=== PATIENT | female | born 1935 | race Caucasian/White ===

== ENCOUNTER → 2017-10-15 | Outpatient (CLI) | payer MEDICARE ==
[2017-10-15 08:59] LABS: HCT 37.8 % (34.0-46.0); HGB 12.3 gm/dL (11.4-16.0); MCH 31.5 pg (25.0-35.0); MCHC 32.5 g/dL (31.0-37.0); Mean Platelet Volume 7.1; Platelet Count 172 k/uL (150-450); RDW 13.8 % (11.5-15.5); WBC 4.9 k/uL (3.8-10.6)
[2017-10-15 09:17] LABS: Albumin 4.5 g/dL (3.5-5.0); Calcium 9.7 mg/dL (8.4-10.2); Potassium 4.8 mmol/L (3.5-5.1); Total Bilirubin 0.8 mg/dL (0.2-1.3); Total Protein 7.1 g/dL (6.3-8.2)
== END | disposition home or self-care (01) ==
LOC: LABWHC1 07:42
PROVIDERS: ATTEND Internal Medicine Endocrinology, Diabetes & Metabolism
DX: E10.65 Type 1 diabetes mellitus with hyperglycemia (principal); E78.5 Hyperlipidemia, unspecified; E03.9 Hypothyroidism, unspecified; I25.118 Atherosclerotic heart disease of native coronary artery with other forms of angina pectoris
CPT/HCPCS: 36415; 80053; 80061; 82043; 82570; 83036; 84443; 85027

== ENCOUNTER 2018-01-23 11:49 | Emergency (ER) | payer MEDICARE ==
[2018-01-23 12:02] VITALS: RESP 16; TEMP 99.2
--- NOTE | 2018-01-23 12:26 | ED ---
General Adult HPI - General Chief complaint: Neuro Symptoms/Deficit Stated complaint: weakness, foot dragging Time Seen by Provider: 01/23/18 11:54 Source: patient, family, RN notes reviewed, old records reviewed Mode of arrival: ambulatory Limitations: physical limitation - History of Present Illness Initial comments: 82-year-old female presents for evaluation of left foot weakness and gait instability. Patient is accompanied by her daughter who states over the past 2 weeks she is, more unsteady on her feet, patient is unable to dorsiflex at the ankle on the left. Denies any paresthesias, denies numbness or tingling. Denies any other focal weakness. Her daughter does state that over the past 2 days she's had some intermittent slurred speech. This is resolved at the time my evaluation. Patient has remote history of TIA with no residual deficits. Denies any injury. Denies chest pain. Denies abdominal pain nausea or vomiting. Denies fever or chills. Denies dysuria. - Related Data Home Medications Medication Instructions Recorded Confirmed Cholecalciferol [Vitamin D3] 2,000 units PO QAM 04/10/14 01/23/18 Atorvastatin [Lipitor] 40 mg PO HS 02/11/16 01/23/18 Calcium Carbonate [Calcium] 1,200 mg PO QAM 02/11/16 01/23/18 Fluticasone Nasal [place] [Flonase 1 spray EA NOSTRIL DAILY PRN 02/11/16 01/23/18 Nasal [place]] Losartan/Hydrochlorothiazide 1 tab PO QAM 02/11/16 01/23/18 [Hyzaar 100-12.5 Tablet] Magnesium Gluconate [Magonate] 500 mg PO HS 02/11/16 01/23/18 [place]-3 Fatty Acids/Fish Oil [Fish 1 cap PO HS 02/11/16 01/23/18 Oil 1,000 mg Softgel] amLODIPine [Norvasc] 5 mg PO DAILY 02/11/16 01/23/18 INSULIN LISPRO (humaLOG) [humaLOG] 3 - 8 unit SQ AC-TID 01/23/18 01/23/18 Insulin Glargine [Lantus] 22 unit SQ QAM 01/23/18 01/23/18 Previous Rx's Medication Instructions Recorded Pen Needle, Diabetic [Bd 1 each ACHS #120 dis.needle 02/15/16 Ultra-Fine Pen Needle 4mm 32G] Allergies Allergy/AdvReac Type Severity Reaction Status Date / Time Penicillins Allergy Rash/Hives Verified 01/23/18 11:56 UNSPECIFIED METAL Allergy PAIN Uncoded 01/23/18 11:56 Review of Systems ROS Statement: Those systems with pertinent positive or pertinent negative responses have been documented in the HPI. ROS Other: All systems not noted in ROS Statement are negative. Past Medical History Past Medical History: Cancer, CVA/TIA, Dementia, Diabetes Mellitus, Hearing Disorder / Deafness, Hyperlipidemia, Hypertension, Pneumonia, Skin Disorder Additional Past Medical History / Comment(s): HAS A INSULIN PUMP,YELLOW JAUNDICE A CHILD". TIA, NO RESIDUAL. History of Any Multi-Drug Resistant Organisms: None Reported Past Surgical History: Heart Catheterization With Stent, Orthopedic Surgery Additional Past Surgical History / Comment(s): SURGERY ON LEG-PLATE AND SCREW, PLATE AND SCREW REMOVED ,CARPAL TUNNEL BILATERAL, carpal tunnel hands bilateral Past Anesthesia/Blood Transfusion Reactions: No Reported Reaction Date of Last Stent Placement:: 04/2014 Past Psychological History: No Psychological Hx Reported Smoking Status: Never smoker Past Alcohol Use History: Occasional Past Drug Use History: None Reported - Past Family History Sister(s) Family Medical History: Cancer, Diabetes Mellitus Additional Family Medical History / Comment(s): multiple siblings have had cancer and diabetes mellitus General Exam Limitations: physical limitation General appearance: alert, in no apparent distress Head exam: Present: atraumatic, normocephalic Eye exam: Present: normal appearance, PERRL, EOMI Neck exam: Present: normal inspection, tenderness Respiratory exam: Present: normal lung sounds bilaterally. Absent: respiratory distress, wheezes Cardiovascular Exam: Present: regular rate, normal rhythm GI/Abdominal exam: Present: soft. Absent: distended, tenderness, guarding Extremities exam: Present: normal inspection, normal capillary refill, other. Absent: pedal edema, calf tenderness Neurological exam: Present: alert, oriented X3, CN II-XII intact, motor sensory deficit (NIH is 0. Patient has foot drop on the left, weakness with dorsiflexion, plantar flexion is normal.), other Psychiatric exam: Present: normal affect, normal mood Skin exam: Present: warm, dry, intact. Absent: cyanosis, diaphoretic Course Vital Signs 01/23/18 11:56 Temperature 99.2 F Pulse Rate 86 Respiratory 16 Rate Blood Pressure 178/81 O2 Sat by Pulse 99 Oximetry EKG Findings - EKG Comments: EKG Findings:: EKG: Sinus rhythm with first-degree AV block, right bundle branch block, rate of 70, W[place] interval 214, QRS duration 134, QTC 466, similar compared to EKG obtained in February 2016. No ST segment elevation Medical Decision Making - Medical Decision Making 82-year-old female presenting with unsteady gait, left foot drop, and some intermittent slurred speech. Workup in the emergency Department is significant for head CT which does show some volume loss which is suggestive of normal pressure hydrocephalus, there is also old lacunar infarct. Chest x-ray shows cardiomegaly with no acute cardiopulmonary process, normal CBC, CMP is significant for hyperglycemia and sodium 131, urinalysis is clear. Patient's gait is likely related to foot drop but head CT findings may be contributing. Case is discussed with patient's primary care physician Dr. Soto. This workup can be continued as an outpatient. All information is conveyed to the patient and her daughter who is at bedside. They will follow up with primary care this week for reevaluation. - Lab Data Result diagrams: 01/23/18 12:28 01/23/18 12:28 Lab Results 01/23/18 01/23/18 01/23/18 Range/Units 12:28 12:28 12:28 WBC 6.0 (3.8-10.6) k/uL RBC 4.08 (3.80-5.40) m/uL Hgb 12.6 (11.4-16.0) gm/dL Hct 37.9 (34.0-46.0) % MCV 92.9 (80.0-100.0) fL MCH 30.9 (25.0-35.0) pg MCHC 33.3 (31.0-37.0) g/dL RDW 12.6 (11.5-15.5) % Plt Count 208 (150-450) k/uL Neutrophils % 74 % Lymphocytes % 17 % Monocytes % 6 % Eosinophils % 1 % Basophils % 0 % Neutrophils # 4.5 (1.3-7.7) k/uL Lymphocytes # 1.0 (1.0-4.8) k/uL Monocytes # 0.4 (0-1.0) k/uL Eosinophils # 0.1 (0-0.7) k/uL Basophils # 0.0 (0-0.2) k/uL PT (9.0-12.0) sec INR (<1.2) APTT (22.0-30.0) sec Sodium 131 L (137-145) mmol/L Potassium 4.4 (3.5-5.1) mmol/L Chloride 97 L (98-107) mmol/L Carbon Dioxide 23 (22-30) mmol/L Anion Gap 11 mmol/L BUN 17 (7-17) mg/dL Creatinine 0.59 (0.52-1.04) mg/dL Est GFR (CKD-EPI)AfAm >90 (>60 ml/min/1.73 sqM) Est GFR (CKD-EPI)NonAf 85 (>60 ml/min/1.73 sqM) Glucose 271 H (74-99) mg/dL Calcium 9.7 (8.4-10.2) mg/dL Total Bilirubin 0.7 (0.2-1.3) mg/dL AST 27 (14-36) U/L ALT 26 (9-52) U/L Alkaline Phosphatase 72 (38-126) U/L Total Creatine Kinase 112 (30-135) U/L CK-MB (CK-2) 1.7 (0.0-2.4) ng/mL CK-MB (CK-2) Rel Index 1.5 Troponin I <0.012 (0.000-0.034) ng/mL Total Protein 6.6 (6.3-8.2) g/dL Albumin 4.0 (3.5-5.0) g/dL Urine Color Urine Appearance (Clear) Urine pH (5.0-8.0) Ur Specific [place] (1.001-1.035) Urine Protein (Negative) Urine Glucose (UA) (Negative) Urine Ketones (Negative) Urine Blood (Negative) Urine Nitrite (Negative) Urine Bilirubin (Negative) Urine Urobilinogen (<2.0) mg/dL Ur Leukocyte Esterase (Negative) Urine WBC (0-5) /hpf Ur Squamous Epith Cells (0-4) /hpf 01/23/18 01/23/18 Range/Units 12:28 13:40 WBC (3.8-10.6) k/uL RBC (3.80-5.40) m/uL Hgb (11.4-16.0) gm/dL Hct (34.0-46.0) % MCV (80.0-100.0) fL MCH (25.0-35.0) pg MCHC (31.0-37.0) g/dL RDW (11.5-15.5) % Plt Count (150-450) k/uL Neutrophils % % Lymphocytes % % Monocytes % % Eosinophils % % Basophils % % Neutrophils # (1.3-7.7) k/uL Lymphocytes # (1.0-4.8) k/uL Monocytes # (0-1.0) k/uL Eosinophils # (0-0.7) k/uL Basophils # (0-0.2) k/uL PT 10.9 (9.0-12.0) sec INR 1.1 (<1.2) APTT 23.1 (22.0-30.0) sec Sodium (137-145) mmol/L Potassium (3.5-5.1) mmol/L Chloride (98-107) mmol/L Carbon Dioxide (22-30) mmol/L Anion Gap mmol/L BUN (7-17) mg/dL Creatinine (0.52-1.04) mg/dL Est GFR (CKD-EPI)AfAm (>60 ml/min/1.73 sqM) Est GFR (CKD-EPI)NonAf (>60 ml/min/1.73 sqM) Glucose (74-99) mg/dL Calcium (8.4-10.2) mg/dL Total Bilirubin (0.2-1.3) mg/dL AST (14-36) U/L ALT (9-52) U/L Alkaline Phosphatase (38-126) U/L Total Creatine Kinase (30-135) U/L CK-MB (CK-2) (0.0-2.4) ng/mL CK-MB (CK-2) Rel Index Troponin I (0.000-0.034) ng/mL Total Protein (6.3-8.2) g/dL Albumin (3.5-5.0) g/dL Urine Color Yellow Urine Appearance Clear (Clear) Urine pH 7.0 (5.0-8.0) Ur Specific [place] 1.005 (1.001-1.035) Urine Protein Negative (Negative) Urine Glucose (UA) 4+ H (Negative) Urine Ketones Trace H (Negative) Urine Blood Negative (Negative) Urine Nitrite Negative (Negative) Urine Bilirubin Negative (Negative) Urine Urobilinogen <2.0 (<2.0) mg/dL Ur Leukocyte Esterase Trace H (Negative) Urine WBC 1 (0-5) /hpf Ur Squamous Epith Cells <1 (0-4) /hpf Disposition Clinical Impression: Foot drop, left, NPH (normal pressure hydrocephalus) Disposition: HOME SELF-CARE Condition: Good Instructions: Foot Drop (ED) Is patient prescribed a controlled substance at d/c from ED?: No Referrals: Quan Soto MD [Primary Care Provider] - 1-2 days Time of Disposition: 14:22
[2018-01-23 12:48] LABS: Basophils % (A) 0 %; Eosinophils # (A) 0.1 k/uL (0-0.7); Eosinophils % (A) 1 %; HCT 37.9 % (34.0-46.0); HGB 12.6 gm/dL (11.4-16.0); Lymphocytes % (A) 17 %; MCH 30.9 pg (25.0-35.0); MCHC 33.3 g/dL (31.0-37.0); MCV 92.9 fL (80.0-100.0); Mean Platelet Volume 7.5; Monocytes # (A) 0.4 k/uL (0-1.0); Monocytes % (A) 6 %; Neutrophils # (A) 4.5 k/uL (1.3-7.7); Neutrophils % (A) 74 %; Platelet Count 208 k/uL (150-450); RBC 4.08 m/uL (3.80-5.40); RDW 12.6 % (11.5-15.5)
[2018-01-23 12:57] LABS: ALT 26 U/L (9-52); AST 27 U/L (14-36); Alkaline Phosphatase 72 U/L (38-126); Anion Gap 11 mmol/L; Blood Urea Nitrogen 17 mg/dL (7-17); Calcium 9.7 mg/dL (8.4-10.2); Carbon Dioxide 23 mmol/L (22-30); Chloride 97 mmol/L (98-107); Glucose 271 mg/dL (74-99); INR 1.1 (<1.2); Partial Thromboplastin Time 23.1 sec (22.0-30.0); Potassium 4.4 mmol/L (3.5-5.1); Prothrombin Time 10.9 sec (9.0-12.0); Sodium 131 mmol/L (137-145); Total Bilirubin 0.7 mg/dL (0.2-1.3); Total Protein 6.6 g/dL (6.3-8.2)
--- NOTE | 2018-01-23 13:06 | CT ---
EXAMINATION TYPE: CT brain wo con DATE OF EXAM: 01/23/2018 COMPARISON: Previous study dated 02/11/2016 HISTORY: Weakness, slurred speech, confusion, dementia CT DLP: 1049 mGycm Automated exposure control for dose reduction was used. FINDINGS: There are generalized changes of sulcal prominence and ventriculomegaly, compatible with atrophic antonella nge. There is diffuse periventricular white matter lucency, compatible with chronic white matter isch emic change. The size of the ventricles are somewhat out of keeping with the degree of sulcal promine nce. It would be difficult to exclude some degree of normal pressure hydrocephalus. There is evidence of an old lacunar infarct in the external capsule on the right. There is no mass effect, midline aarti ft or intracranial blood. Visualized portions of the paranasal sinuses and mastoids are clear. No depressed skull fracture is s een. IMPRESSION: 1. NO ACUTE INTRACRANIAL ABNORMALITY. 2. PLEASE CORRELATE CLINICALLY FOR NORMAL PRESSURE HYDROCEPHALUS. 3. DEGENERATIVE CHANGE.
--- NOTE | 2018-01-23 13:06 | XR ---
EXAMINATION TYPE: XR chest 2V DATE OF EXAM: 01/23/2018 HISTORY: altered mental status. REFERENCE: Previous study dated 02/11/2016. FINDINGS: The heart is enlarged. The lungs are clear. Pleural spaces are clear. IMPRESSION: CARDIOMEGALY.
[2018-01-23 13:07] LABS: Creatine Kinase 112 U/L (30-135)
[2018-01-23 13:21] LABS: Creatine Kinase MB 1.7 ng/mL (0.0-2.4); Troponin I <0.012 ng/mL (0.000-0.034)
[2018-01-23 13:55] LABS: Appearance,Urine Clear (Clear); Bilirubin,Urine Negative (Negative); Blood,Urine Negative (Negative); Color,Urine Yellow; Glucose,Urine (UA) 4+ (Negative); Ketones,Urine Trace (Negative); Leukocyte Esterase,Urine Trace (Negative); Nitrite,Urine Negative (Negative); Protein,Urine Negative (Negative); Specific Gravity,Urine 1.005 (1.001-1.035); Squamous Epithelial Cell,Urine <1 /hpf (0-4); Urobilinogen,Urine <2.0 mg/dL (<2.0); WBC,Urine 1 /hpf (0-5)
[2018-01-23 14:30] VITALS: BP 160/77; PULSE 72
== END 2018-01-23 14:30 | disposition home or self-care (01) ==
LOC: EC 11:49
DX: M21.372 Foot drop, left foot (principal); G91.2 (Idiopathic) normal pressure hydrocephalus; R47.81 Slurred speech; I51.7 Cardiomegaly; E11.9 Type 2 diabetes mellitus without complications; E78.5 Hyperlipidemia, unspecified; I10 Essential (primary) hypertension; Z79.4 Long term (current) use of insulin; Z79.899 Other long term (current) drug therapy; Z79.51 Long term (current) use of inhaled steroids; Z88.0 Allergy status to penicillin; Z91.09 Other allergy status, other than to drugs and biological substances; Z86.73 Personal history of transient ischemic attack (TIA), and cerebral infarction without residual deficits; Z95.5 Presence of coronary angioplasty implant and graft
CPT/HCPCS: 36415; 70450; 71046; 80053; 81001; 82550; 82553; 84484; 85025; 85610; 85730; 93005; 99284

== ENCOUNTER 2019-09-22 18:52 | Inpatient (IN) | payer MEDICARE ==
[2019-09-22] MEDS ORDERED: SODIUM CHLORIDE 0.9% 500 ML 500 ML IV STA (19:14)
--- NOTE | 2019-09-22 19:25 | ED ---
General Adult HPI - General Chief complaint: Weakness Stated complaint: weakness/vomiting Time Seen by Provider: 09/22/19 19:00 Source: patient, family, RN notes reviewed Mode of arrival: wheelchair Limitations: altered mental status, physical limitation - History of Present Illness Initial comments: 84-year-old female with a complicated past medical history including diabetes mellitus, dementia, TIA, hyperlipidemia, hypertension, pneumonia presents to the emergency department for a chief complaint of weakness. Patient has been staying at [facility]. Daughter states that she was called by staff today and told that she probably should go to the hospital because she is very weak. Unclear exactly when this started. Patient did apparently fall on Wednesday and hit her head. Patient has history of dementia and is at baseline regarding this. patient was also apparently vomiting clear vomit earlier today. Patient has no other complaints at this time including shortness of breath, chest pain, abdominal pain, nausea or vomiting, headache, or visual changes. - Related Data Home Medications Medication Instructions Recorded Confirmed Cholecalciferol [Vitamin D3 (25 1,000 units PO DAILY@0800 04/10/14 09/22/19 Mcg = 1000 Iu)] Atorvastatin [Lipitor] 40 mg PO HS@1700 02/11/16 09/22/19 Fluticasone Nasal [place] [Flonase 2 spray EA NOSTRIL DAILY@0800 02/11/16 09/22/19 Nasal [place]] Losartan/Hydrochlorothiazide 1 tab PO DAILY@1200 02/11/16 09/22/19 [Hyzaar 100-12.5 Tablet] [place]-3 Fatty Acids/Fish Oil [Fish 1 cap PO HS@1700 02/11/16 09/22/19 Oil 1,000 mg Softgel] amLODIPine [Norvasc] 2.5 mg PO DAILY@1200 02/11/16 09/22/19 ALPRAZolam [Xanax] 0.25 mg PO BID@0800,1400 09/22/19 09/22/19 Acetaminophen Tab [Tylenol Tab] 1,000 mg PO Q8H PRN 09/22/19 09/22/19 Acetic Acid [Acetic Acid Otic 5 - 10 drops BOTH EARS 09/22/19 09/22/19 Solution] TID@0800,1400,2000 Aspirin EC [Ecotrin Low Dose] 81 mg PO DAILY@0800 09/22/19 09/22/19 Calcium Carbonate [Calcium] 1,200 mg PO DAILY 09/22/19 09/22/19 Calcium Carbonate [Tums] 1,000 mg PO DAILY@0800 09/22/19 09/22/19 DULoxetine HCL [Cymbalta] 30 mg PO DAILY@0800 09/22/19 09/22/19 Famotidine 10 mg PO DAILY@0800 09/22/19 09/22/19 Fluticasone Nasal [place] [Flonase 2 spr EA NOSTRIL HS PRN 09/22/19 09/22/19 Nasal [place]] Guaifenesin/Dextromethorphan 10 ml PO Q4H PRN 09/22/19 09/22/19 [Diabetic Tussin Dm Max-Str Liq] Insulin Aspart [NovoLOG Flexpen] See Protocol SQ TID@0800,1200,1700 09/22/19 09/22/19 Insulin Glargine,Hum.rec.anlog 22 unit SQ DAILY@0800 09/22/19 09/22/19 [Lantus Solostar] Magnesium Oxide [[place]le[place]] 1,000 mg PO HS@1700 09/22/19 09/22/19 Naproxen Sodium [Aleve] 440 mg PO BID@0800,2000 09/22/19 09/22/19 Phenylephrine HCl [Sudafed PE] 20 mg PO Q4H PRN 09/22/19 09/22/19 Allergies Allergy/AdvReac Type Severity Reaction Status Date / Time Penicillins Allergy Rash/Hives Verified 09/22/19 19:52 UNSPECIFIED METAL AdvReac PAIN Uncoded 09/22/19 19:52 Review of Systems ROS Statement: Those systems with pertinent positive or pertinent negative responses have been documented in the HPI. ROS Other: All systems not noted in ROS Statement are negative. Past Medical History Past Medical History: Cancer, CVA/TIA, Dementia, Diabetes Mellitus, Hearing Disorder / Deafness, Hyperlipidemia, Hypertension, Pneumonia, Skin Disorder Additional Past Medical History / Comment(s): HAS A INSULIN PUMP,YELLOW JAUNDICE A CHILD". TIA, NO RESIDUAL. History of Any Multi-Drug Resistant Organisms: None Reported Past Surgical History: Heart Catheterization With Stent, Orthopedic Surgery Additional Past Surgical History / Comment(s): SURGERY ON LEG-PLATE AND SCREW,PLATE AND SCREW REMOVED ,CARPAL TUNNEL BILATERAL, carpal tunnel hands bilateral Past Anesthesia/Blood Transfusion Reactions: No Reported Reaction Date of Last Stent Placement:: 04/2014 Past Psychological History: No Psychological Hx Reported Smoking Status: Never smoker Past Alcohol Use History: Occasional Past Drug Use History: None Reported - Past Family History Sister(s) Family Medical History: Cancer, Diabetes Mellitus Additional Family Medical History / Comment(s): multiple siblings have had cancer and diabetes mellitus General Exam Limitations: altered mental status, physical limitation General appearance: alert, in no apparent distress Head exam: Present: atraumatic, normocephalic, normal inspection Eye exam: Present: normal appearance, PERRL, EOMI. Absent: scleral icterus, conjunctival injection, periorbital swelling ENT exam: Present: normal exam, mucous membranes moist Neck exam: Present: normal inspection, full ROM. Absent: tenderness, meningismus, lymphadenopathy Respiratory exam: Present: normal lung sounds bilaterally. Absent: respiratory distress, wheezes, rales, rhonchi, stridor Cardiovascular Exam: Present: regular rate, normal rhythm, normal heart sounds. Absent: systolic murmur, diastolic murmur, rubs, gallop, clicks GI/Abdominal exam: Present: soft, tenderness (generalized abdominal tenderness), normal bowel sounds. Absent: distended, guarding, rebound, rigid Neurological exam: Present: alert Course Vital Signs 09/22/19 18:56 Temperature 97.7 F Pulse Rate 77 Respiratory 20 Rate Blood Pressure 157/75 O2 Sat by Pulse 98 Oximetry EKG Findings - EKG Comments: EKG Findings:: Sinus rhythm, ventricular rate 93, MT interval 212, QTc 502, compared to previous EKG from January 2018 and it is similar with right bundle branch block Medical Decision Making - Medical Decision Making Vitals are stable. Patient is an elderly female adult appear weak but is able to ambulate with a 2 person assist. CBC is unremarkable. CMP does show mild hyponatremia which was replaced with normal saline. Evidence of dehydration as well with a BUN to creatinine ratio of 45. Patient was given a gram of magnesium as she did have a hypomagnesemia of 1.5 with a slightly prolonged QTc of 502. Urinalysis did show evidence of infection. Urine culture pending. Patient treated with Rocephin. Patient will be admitted to the hospital. A bladder scan was ordered when necessary as we did straight cath patient and she had 600 mL in her bladder. Dr. Gomez did accept as admission. Made aware that she does have history of sundowner's. - Lab Data Result diagrams: 09/22/19 19:09/22/19 19: Lab Results 09/22/19 09/22/19 09/22/19 Range/Units 19: 19: 19:22 WBC 8.3 (3.8-10.6) k/uL RBC 4.45 (3.80-5.40) m/uL Hgb 13.3 (11.4-16.0) gm/dL Hct 41.2 (34.0-46.0) % MCV 92.6 (80.0-100.0) fL MCH 29.9 (25.0-35.0) pg MCHC 32.3 (31.0-37.0) g/dL RDW 12.6 (11.5-15.5) % Plt Count 234 (150-450) k/uL Neutrophils % 91 % Lymphocytes % 5 % Monocytes % 3 % Eosinophils % 0 % Basophils % 0 % Neutrophils # 7.5 (1.3-7.7) k/uL Lymphocytes # 0.4 L (1.0-4.8) k/uL Monocytes # 0.3 (0-1.0) k/uL Eosinophils # 0.0 (0-0.7) k/uL Basophils # 0.0 (0-0.2) k/uL PT 10.8 (9.0-12.0) sec INR 1.1 (<1.2) APTT 23.0 (22.0-30.0) sec Sodium 129 L (137-145) mmol/L Potassium 4.1 (3.5-5.1) mmol/L Chloride 94 L (98-107) mmol/L Carbon Dioxide 22 (22-30) mmol/L Anion Gap 13 mmol/L BUN 22 H (7-17) mg/dL Creatinine 0.48 L (0.52-1.04) mg/dL Est GFR (CKD-EPI)AfAm >90 (>60 ml/min/1.73 sqM) Est GFR (CKD-EPI)NonAf 90 (>60 ml/min/1.73 sqM) Glucose 245 H (74-99) mg/dL Plasma Lactic Acid Bhar[place] (0.7-2.0) mmol/L Calcium 9.7 (8.4-10.2) mg/dL Magnesium 1.5 L (1.6-2.3) mg/dL Total Bilirubin 1.1 (0.2-1.3) mg/dL AST 22 (14-36) U/L ALT 15 (4-34) U/L Alkaline Phosphatase 102 (38-126) U/L Troponin I (0.000-0.034) ng/mL Total Protein 7.5 (6.3-8.2) g/dL Albumin 4.3 (3.5-5.0) g/dL Urine Color Urine Appearance (Clear) Urine pH (5.0-8.0) Ur Specific [place] (1.001-1.035) Urine Protein (Negative) Urine Glucose (UA) (Negative) Urine Ketones (Negative) Urine Blood (Negative) Urine Nitrite (Negative) Urine Bilirubin (Negative) Urine Urobilinogen (<2.0) mg/dL Ur Leukocyte Esterase (Negative) Urine RBC (0-5) /hpf Urine WBC (0-5) /hpf Ur Squamous Epith Cells (0-4) /hpf Urine Bacteria (None) /hpf Urine Mucus (None) /hpf Urine Yeast (Budding) (None) /hpf 09/22/19 09/22/19 09/22/19 Range/Units 19:22 19:22 20:30 WBC (3.8-10.6) k/uL RBC (3.80-5.40) m/uL Hgb (11.4-16.0) gm/dL Hct (34.0-46.0) % MCV (80.0-100.0) fL MCH (25.0-35.0) pg MCHC (31.0-37.0) g/dL RDW (11.5-15.5) % Plt Count (150-450) k/uL Neutrophils % % Lymphocytes % % Monocytes % % Eosinophils % % Basophils % % Neutrophils # (1.3-7.7) k/uL Lymphocytes # (1.0-4.8) k/uL Monocytes # (0-1.0) k/uL Eosinophils # (0-0.7) k/uL Basophils # (0-0.2) k/uL PT (9.0-12.0) sec INR (<1.2) APTT (22.0-30.0) sec Sodium (137-145) mmol/L Potassium (3.5-5.1) mmol/L Chloride (98-107) mmol/L Carbon Dioxide (22-30) mmol/L Anion Gap mmol/L BUN (7-17) mg/dL Creatinine (0.52-1.04) mg/dL Est GFR (CKD-EPI)AfAm (>60 ml/min/1.73 sqM) Est GFR (CKD-EPI)NonAf (>60 ml/min/1.73 sqM) Glucose (74-99) mg/dL Plasma Lactic Acid Bharathi 2.0 (0.7-2.0) mmol/L Calcium (8.4-10.2) mg/dL Magnesium (1.6-2.3) mg/dL Total Bilirubin (0.2-1.3) mg/dL AST (14-36) U/L ALT (4-34) U/L Alkaline Phosphatase (38-126) U/L Troponin I <0.012 (0.000-0.034) ng/mL Total Protein (6.3-8.2) g/dL Albumin (3.5-5.0) g/dL Urine Color Light Yellow Urine Appearance Cloudy H (Clear) Urine pH 5.5 (5.0-8.0) Ur Specific [place] 1.016 (1.001-1.035) Urine Protein 1+ H (Negative) Urine Glucose (UA) 4+ H (Negative) Urine Ketones 3+ H (Negative) Urine Blood Negative (Negative) Urine Nitrite Negative (Negative) Urine Bilirubin Negative (Negative) Urine Urobilinogen <2.0 (<2.0) mg/dL Ur Leukocyte Esterase Large H (Negative) Urine RBC 1 (0-5) /hpf Urine WBC 62 H (0-5) /hpf Ur Squamous Epith Cells <1 (0-4) /hpf Urine Bacteria Rare H (None) /hpf Urine Mucus Rare H (None) /hpf Urine Yeast (Budding) Occasional H (None) /hpf Disposition Clinical Impression: Urinary tract infection, Hyponatremia, Hyperglycemia, Weakness Disposition: ADMITTED IP TO THIS HOSP Condition: Fair Is patient prescribed a controlled substance at d/c from ED?: No Referrals: Quan Soto MD [Primary Care Provider] - 1-2 days
[2019-09-22 19:38] LABS: Basophils % (A) 0 %; Eosinophils % (A) 0 %; HCT 41.2 % (34.0-46.0); HGB 13.3 gm/dL (11.4-16.0); Lymphocytes # (A) 0.4 k/uL (1.0-4.8); Lymphocytes % (A) 5 %; MCH 29.9 pg (25.0-35.0); MCHC 32.3 g/dL (31.0-37.0); MCV 92.6 fL (80.0-100.0); Mean Platelet Volume 7.7; Monocytes # (A) 0.3 k/uL (0-1.0); Monocytes % (A) 3 %; Neutrophils # (A) 7.5 k/uL (1.3-7.7); Neutrophils % (A) 91 %; Platelet Count 234 k/uL (150-450); RBC 4.45 m/uL (3.80-5.40); RDW 12.6 % (11.5-15.5); WBC 8.3 k/uL (3.8-10.6)
[2019-09-22 19:52] LABS: ALT 15 U/L (4-34); AST 22 U/L (14-36); African American GFR (CKD) >90 (>60 ml/min/1.73 sqM); Albumin 4.3 g/dL (3.5-5.0); Alkaline Phosphatase 102 U/L (38-126); Anion Gap 13 mmol/L; Blood Urea Nitrogen 22 mg/dL (7-17); Calcium 9.7 mg/dL (8.4-10.2); Carbon Dioxide 22 mmol/L (22-30); Chloride 94 mmol/L (98-107); Glucose 245 mg/dL (74-99); Magnesium 1.5 mg/dL (1.6-2.3); Non-African American GFR(CKD) 90 (>60 ml/min/1.73 sqM); Potassium 4.1 mmol/L (3.5-5.1); Sodium 129 mmol/L (137-145); Total Bilirubin 1.1 mg/dL (0.2-1.3); Total Protein 7.5 g/dL (6.3-8.2)
[2019-09-22 19:55] LABS: INR 1.1 (<1.2); Prothrombin Time 10.8 sec (9.0-12.0)
--- NOTE | 2019-09-22 19:55 | CT ---
EXAMINATION TYPE: CT brain cspine wo con DATE OF EXAM: 09/22/2019 COMPARISON: CT brain dated 01/23/2018 HISTORY: Fall 4 days ago with Left supra orbital injury CT DLP: 1320.9 mGycm. Automated Exposure Control for Dose Reduction was Utilized. TECHNIQUE: CT scan of the head and cervical spine are performed without contrast. FINDINGS: There is no acute intracranial hemorrhage or midline shift identified. There is diffuse v entricular and sulcal prominence consistent with diffuse age-related cerebral atrophy. There is exte nsive confluent low-attenuation in the periventricular white matter most commonly related to sequela of chronic microangiopathy. Lacunar injuries are seen of the right external capsule and right lentifo rm nucleus. Curvilinear hyperdense structure along the left parietal bone is indeterminate but unchan ged from the prior of 01/23/2018. Calcification of the tentorium is stable from the prior. Cervical spine is visualized in its entirety from C1 through upper thoracic levels and demonstrates s atisfactory alignment without evidence of acute fracture or dislocation. Prevertebral soft tissue ap pears within normal limits. Extensive multilevel degenerative disc disease is seen of the cervical s pine with multilevel anterior osteophytes, facet arthropathy, intervertebral disc space narrowing, po sterior disc osteophyte, uncovertebral hypertrophy, and cystic change of the osseous structures. Calc ifications of the spinous processes of C7 and T1 are likely sequela prior injury. There is diffuse os seous demineralization. Very minimal grade 1 anterolisthesis of C3 on C4 is seen, likely on a degener ative basis. No appreciable vertebral body height loss. Multifocal calcification of the ligamentum fl avum is seen. Evaluation of the spinal canal is limited on CT. The C1-C2 articulation is unremarkable . Biapical pleural parenchymal scarring is noted. Extensive spray artifact from dental fillings obsc ures surrounding structures and portions of the soft tissues of the neck. IMPRESSION: 1. There is no acute fracture or dislocation evident in the cervical spine. Extensive multilevel dege nerative disc disease with grade 1 anterolisthesis of C3 on C4, likely on a degenerative basis. 2. No acute intracranial hemorrhage, mass effect, or midline shift is seen. Extensive confluent nonsp ecific white matter change, likely on the basis of chronic microangiopathy with multiple old lacunar injuries. 3. Age-related volume loss.
--- NOTE | 2019-09-22 19:57 | XR ---
EXAMINATION TYPE: XR chest 1V portable DATE OF EXAM: 09/22/2019 COMPARISON: 01/23/2018 HISTORY: Weakness and vomiting. TECHNIQUE: Single frontal view of the chest is obtained. FINDINGS: There is pulmonary hyperinflation compatible with underlying COPD. Opacity overlying the d istal first rib is similar to the prior and therefore likely relates to costochondral calcification. Cardiomediastinal silhouette is again mildly enlarged and rotated to the right secondary to patient r otation. There is diffuse osseous demineralization. No new focal consolidation, pleural effusion or p neumothorax. IMPRESSION: Chronic changes with no acute cardiopulmonary process.
[2019-09-22] MEDS ORDERED: MAGNESIUM SULFATE-D5W PMX 1 GM in DEXTROSE/WATER 1 100ML.BAG IVPB ONE (20:07)
[2019-09-22 20:44] LABS: Appearance,Urine Cloudy (Clear); Bacteria,Urine Rare /hpf; Bilirubin,Urine Negative (Negative); Blood,Urine Negative (Negative); Budding Yeast,Urine Occasional /hpf; Color,Urine Light Yellow; Glucose,Urine (UA) 4+ (Negative); Leukocyte Esterase,Urine Large (Negative); Mucus,Urine Rare /hpf; Nitrite,Urine Negative (Negative); PH, Urine 5.5 (5.0-8.0); Protein,Urine 1+ (Negative); RBC,Urine 1 /hpf (0-5); Specific Gravity,Urine 1.016 (1.001-1.035); Squamous Epithelial Cell,Urine <1 /hpf (0-4); Urobilinogen,Urine <2.0 mg/dL (<2.0); WBC,Urine 62 /hpf (0-5)
[2019-09-22 21:01] LABS: Ketones,Urine 3+ (Negative)
[2019-09-22] MEDS ORDERED: cefTRIAXone IN SWFI 1,000 MG/10 ML SYRINGE IVP STA (21:35)
[2019-09-22] MEDS ORDERED: NALOXONE 0.4 MG/ML 1 ML VIAL IV PRN (21:36)
[2019-09-22 21:57] LABS: Glucose,Whole Blood 265 mg/dL (75-99)
[2019-09-22] MEDS: SODIUM CHLORIDE 0.9% 1,000 ML IV SCH (22:01)
--- NOTE | 2019-09-23 02:28 | P.HPIM ---
History of Present Illness H&P Date: 09/22/19 Patient is an 84-year-old female with a PMH of type II DM, dementia, hypertension, hyperlipidemia, and TIA who was brought in via EMS due to weakness and lethargy. History obtained from chart since patient is a very poor historian and unable to reach family despite multiple attempts ([phone]). The patient is reportedly a resident of [facility] and was noted to be weak with a history of fall a few days prior, where she supposedly hit her head. The patient also had a single episode of vomiting earlier on the day of presentation. At time of interview, the patient noted that she feels "fine" and denied any active complaints. She denied chest pain, shortness with, fever, chills, nausea, vomiting, abdominal pain, or diarrhea. She however was difficult to redirect and continued to think that the medical underwriter was a family member of hers. The patient underwent an extensive evaluation in the emergency room with WBC count 8.3, and 113.3, platelets 234, sodium 129, BUN 22, creatinine 0. 4, glucose 245, and UA grossly abnormal. Chest x-ray was unremarkable and EKG as reviewed by me showed a 93 bpm sinus rhythm with first-degree AV block and right bundle carlos a block. CT head and cervical spine revealed no acute changes. Review of Systems Pertinent positives and negatives as discussed in HPI, a complete review of systems was performed and all other systems are negative. Past Medical History Past Medical History: Cancer, CVA/TIA, Dementia, Diabetes Mellitus, Hearing Disorder / Deafness, Hyperlipidemia, Hypertension, Pneumonia, Skin Disorder Additional Past Medical History / Comment(s): HAS A INSULIN PUMP,YELLOW JAUNDICE A CHILD". TIA, NO RESIDUAL. History of Any Multi-Drug Resistant Organisms: None Reported Past Surgical History: Heart Catheterization With Stent, Orthopedic Surgery Additional Past Surgical History / Comment(s): SURGERY ON LEG-PLATE AND SCREW,PLATE AND SCREW REMOVED ,CARPAL TUNNEL BILATERAL, carpal tunnel hands bilateral Past Anesthesia/Blood Transfusion Reactions: No Reported Reaction Date of Last Stent Placement:: 04/2014 Past Psychological History: No Psychological Hx Reported Smoking Status: Never smoker Past Alcohol Use History: Occasional Past Drug Use History: None Reported - Past Family History Sister(s) Family Medical History: Cancer, Diabetes Mellitus Additional Family Medical History / Comment(s): multiple siblings have had cancer and diabetes mellitus Medications and Allergies Home Medications Medication Instructions Recorded Confirmed Type Cholecalciferol [Vitamin D3 (25 1,000 units PO DAILY@0800 12//09/22/19 History Mcg = 1000 Iu)] Atorvastatin [Lipitor] 40 mg PO HS@1700 02/11/16 09/22/19 History Fluticasone Nasal [place] [Flonase 2 spray EA NOSTRIL DAILY@0800 02/11/16 09/22/19 History Nasal [place]] Losartan/Hydrochlorothiazide 1 tab PO DAILY@1200 02/11/16 09/22/19 History [Hyzaar 100-12.5 Tablet] [place]-3 Fatty Acids/Fish Oil [Fish 1 cap PO HS@1700 02/11/16 09/22/19 History Oil 1,000 mg Softgel] amLODIPine [Norvasc] 2.5 mg PO DAILY@1200 02/11/16 09/22/19 History ALPRAZolam [Xanax] 0.25 mg PO BID@0800,1400 09/22/19 09/22/19 History Acetaminophen Tab [Tylenol Tab] 1,000 mg PO Q8H PRN 09/22/19 09/22/19 History Acetic Acid [Acetic Acid Otic 5 - 10 drops BOTH EARS 09/22/19 09/22/19 History Solution] TID@0800,1400,2000 Aspirin EC [Ecotrin Low Dose] 81 mg PO DAILY@0800 09/22/19 09/22/19 History Calcium Carbonate [Calcium] 1,200 mg PO DAILY 09/22/19 09/22/19 History Calcium Carbonate [Tums] 1,000 mg PO DAILY@0800 09/22/19 09/22/19 History DULoxetine HCL [Cymbalta] 30 mg PO DAILY@0800 09/22/19 09/22/19 History Famotidine 10 mg PO DAILY@0800 09/22/19 09/22/19 History Fluticasone Nasal [place] [Flonase 2 spr EA NOSTRIL HS PRN 09/22/19 09/22/19 History Nasal [place]] Guaifenesin/Dextromethorphan 10 ml PO Q4H PRN 09/22/19 09/22/19 History [Diabetic Tussin Dm Max-Str Liq] Insulin Aspart [NovoLOG Flexpen] See Protocol SQ TID@0800,1200,1700 09/22/19 09/22/19 History Insulin Glargine,Hum.rec.anlog 22 unit SQ DAILY@0800 09/22/19 09/22/19 History [Lantus Solostar] Magnesium Oxide [[place]] 1,000 mg PO HS@1700 09/22/19 09/22/19 History Naproxen Sodium [Aleve] 440 mg PO BID@0800,2000 09/22/19 09/22/19 History Phenylephrine HCl [Sudafed PE] 20 mg PO Q4H PRN 09/22/19 09/22/19 History Allergies Allergy/AdvReac Type Severity Reaction Status Date / Time Penicillins Allergy Rash/Hives Verified 09/22/19 19:52 UNSPECIFIED METAL AdvReac PAIN Uncoded 09/22/19 19:52 Physical Exam Vitals: Vital Signs Temp Pulse Resp BP Pulse Ox 09/22/19 22:00 70 18 190/90 98 09/22/19 18:56 97.7 F 77 20 157/75 98 Intake and Output 09/22/19 09/22/19 09/23/19 14:59 22:59 06:59 Other: Weight 63.503 kg General: non toxic, no distress, appears at stated age, normal weight Derm: no unusual rashes/lesions no unusual ecchymoses, warm, dry Head: atraumatic, normocephalic, symmetric Eyes: EOMI, no lid lag, anicteric sclera, pupils equal round reactive to light ENT: Nose and ears atraumatic, no thrush, no pharyngeal erythema Neck: No thyromegaly, no cervical lymphadenopathy, trachea midline, supple Mouth: no lip lesion, mucus membranes moist Cardiovascular: S1S2 reg, no murmur, positive posterior tibial pulse bilateral, no edema, capillary refill less than 2 seconds Lungs: CTA bilateral, no rhonchi, no rales , no accessory muscle use Abdominal: soft, nontender to palpation, no guarding, no appreciable organomegaly, normal bowel sounds Ext: no gross muscle atrophy, muscle strength 4 out of 5 in all 4 extremities grossly, no contractures, Neuro: CN II-XI grossly intact, no focal neuro deficits Psych: Alert, awake, oriented only to self Results CBC & Chem 7: 09/22/19 19:22 09/22/19 19:22 Labs: Abnormal Lab Results - Last 24 Hours (Table) 09/22/19 09/22/19 09/22/19 Range/Units 19:22 19:22 20:30 Lymphocytes # 0.4 L (1.0-4.8) k/uL Sodium 129 L (137-145) mmol/L Chloride 94 L (98-107) mmol/L BUN 22 H (7-17) mg/dL Creatinine 0.48 L (0.52-1.04) mg/dL Glucose 245 H (74-99) mg/dL POC Glucose (mg/dL) (75-99) mg/dL Magnesium 1.5 L (1.6-2.3) mg/dL Urine Appearance Cloudy H (Clear) Urine Protein 1+ H (Negative) Urine Glucose (UA) 4+ H (Negative) Urine Ketones 3+ H (Negative) Ur Leukocyte Esterase Large H (Negative) Urine WBC 62 H (0-5) /hpf Urine Bacteria Rare H (None) /hpf Urine Mucus Rare H (None) /hpf Urine Yeast (Budding) Occasional H (None) /hpf 09/22/19 Range/Units 21:56 Lymphocytes # (1.0-4.8) k/uL Sodium (137-145) mmol/L Chloride (98-107) mmol/L BUN (7-17) mg/dL Creatinine (0.52-1.04) mg/dL Glucose (74-99) mg/dL POC Glucose (mg/dL) 265 H (75-99) mg/dL Magnesium (1.6-2.3) mg/dL Urine Appearance (Clear) Urine Protein (Negative) Urine Glucose (UA) (Negative) Urine Ketones (Negative) Ur Leukocyte Esterase (Negative) Urine WBC (0-5) /hpf Urine Bacteria (None) /hpf Urine Mucus (None) /hpf Urine Yeast (Budding) (None) /hpf Assessment and Plan Plan: UTI with metabolic encephalopathy in setting of baseline dementia -Continue with ceftriaxone -Follow up blood and urine cultures -Continue with IV fluids Type II DM -Continue with insulin Levemir 20 units daily at bedtime with sliding scale and blood glucose monitoring -Check A1c Hyponatremia -Continue with IV fluids and monitor BMP Hypomagnesemia -Replace and monitor Hypertension, HLD, hx of TIA -Continue with home meds DVT prophylaxis -Heparin subq The patient is admitted with an anticipated greater than 2 midnight stay for evaluation of UTI CODE STATUS: Full Code Discussed with: Patient Anticipated discharge date: 2-[address]: SNF A total of 35 minutes was spent on the care of this complex patient more than 50% of the time was spent in counseling and care coordination.
[2019-09-23] MEDS ORDERED: FLUTICASONE 50MCG/SPRAY NASAL 16GM EA NOSTRIL PRN (03:09)
[2019-09-23] MEDS: SODIUM CHLORIDE 0.9% 1,000 ML IV SCH ×3 (06:14→21:09)
[2019-09-23 06:31] LABS: Basophils % (A) 0 %; Eosinophils % (A) 0 %; HCT 37.1 % (34.0-46.0); HGB 11.7 gm/dL (11.4-16.0); Lymphocytes # (A) 0.5 k/uL (1.0-4.8); Lymphocytes % (A) 6 %; MCH 29.2 pg (25.0-35.0); MCHC 31.4 g/dL (31.0-37.0); MCV 93.2 fL (80.0-100.0); Mean Platelet Volume 7.9; Monocytes # (A) 0.4 k/uL (0-1.0); Monocytes % (A) 5 %; Neutrophils # (A) 7.7 k/uL (1.3-7.7); Neutrophils % (A) 88 %; Platelet Count 231 k/uL (150-450); RBC 3.99 m/uL (3.80-5.40); RDW 12.8 % (11.5-15.5); WBC 8.7 k/uL (3.8-10.6)
[2019-09-23 06:38] LABS: African American GFR (CKD) >90 (>60 ml/min/1.73 sqM); Anion Gap 11 mmol/L; Blood Urea Nitrogen 25 mg/dL (7-17); Calcium 8.9 mg/dL (8.4-10.2); Carbon Dioxide 23 mmol/L (22-30); Chloride 97 mmol/L (98-107); Glucose 274 mg/dL (74-99); Magnesium 1.7 mg/dL (1.6-2.3); Non-African American GFR(CKD) 80 (>60 ml/min/1.73 sqM); Potassium 4.4 mmol/L (3.5-5.1); Sodium 131 mmol/L (137-145)
[2019-09-23 06:52] LABS: Glucose,Whole Blood 277 mg/dL (75-99)
[2019-09-23] MEDS: INSULIN ASPART (NovoLOG) 100 UNIT/ML VIAL SQ SCH ×4 (07:02→20:59)
[2019-09-23] MEDS: ASPIRIN 81 MG PO SCH (09:25)
[2019-09-23] MEDS: DULoxetine HCL 30 MG CAPSULE.DR PO SCH (09:25)
[2019-09-23] MEDS: CHOLECALCIFEROL 1,000 UNIT TAB PO SCH (09:25)
[2019-09-23] MEDS: FAMOTIDINE 20 MG TAB PO SCH (09:25)
[2019-09-23] MEDS: CALCIUM CARBONATE 500 MG CHEWABLE PO SCH (09:25)
[2019-09-23] MEDS: HEPARIN SODIUM,PORCINE 5,000 UNIT/ML 1 ML VIAL SQ SCH ×3 (09:37→23:25)
[2019-09-23] MEDS: FLUTICASONE 50MCG/SPRAY NASAL 16GM EA NOSTRIL SCH (10:15)
[2019-09-23 12:05] LABS: Glucose,Whole Blood 253 mg/dL (75-99)
[2019-09-23] MEDS: LOSARTAN 50 MG TAB PO SCH (12:46)
[2019-09-23] MEDS: amLODIPine 5 MG TAB PO SCH (12:46)
[2019-09-23] MEDS: LOSARTAN-HCTZ 50-12.5 MG 1 EACH TAB PO SCH (12:47)
--- NOTE | 2019-09-23 13:55 | P.PN ---
Subjective Progress Note Date: 09/23/19 Principal diagnosis: UTI Patient was seen and examined. No acute events overnight. Patient appears pleasantly confused this morning. She is confused but is easily redirected by community health nursing director. Apparently, community health nursing director remembers taking care of this patient from an outside location. The aid seems to think that this is baseline for the patient. Patient herself does not have any complaints. She denies any abdominal pain or dysuria. No nausea or vomiting. No fever or chills. She denies any chest pain, shortness of breath or palpitations. Objective - Vital Signs Vital signs: Vital Signs Temp 97.9 F 09/23/19 12:00 Pulse 101 H 09/23/19 12:00 Resp 18 09/23/19 12:00 BP 165/78 09/23/19 12:00 Pulse Ox 96 09/23/19 12:00 Intake & Output 09/22/19 09/23/19 09/23/19 18:59 06:59 18:59 Weight 63.503 kg 60 kg Other: Voiding Method Bedside Commode Bedside Commode # Voids 0 1 - Exam General: [non toxic], [no distress], [appears at stated age] Derm: [warm], [dry] Head: [atraumatic], [normocephalic], [symmetric] Eyes: [EOMI], [no lid lag], [anicteric sclera] Mouth: [no lip lesion], [mucus membranes moist] Cardiovascular: [S1S2 reg], [no murmur], [positive posterior tibial pulse bilateral], Lungs: [CTA bilateral], [no rhonchi, no rales] , [no accessory muscle use] Abdominal: [soft], [ nontender to palpation], [no guarding], [no appreciable organomegaly] Ext: [no gross muscle atrophy], [no edema], [no contractures] Neuro: [ CN II-XI grossly intact], [no focal neuro deficits] Psych: [Pleasantly confused but redirectable] - Labs CBC & Chem 7: 09/23/19 06:16 09/23/19 06:16 Labs: Abnormal Lab Results - Last 24 Hours (Table) 09/22/19 09/22/19 09/22/19 Range/Units 19:22 19:22 20:30 Lymphocytes # 0.4 L (1.0-4.8) k/uL Sodium 129 L (137-145) mmol/L Chloride 94 L (98-107) mmol/L BUN 22 H (7-17) mg/dL Creatinine 0.48 L (0.52-1.04) mg/dL Glucose 245 H (74-99) mg/dL POC Glucose (mg/dL) (75-99) mg/dL Magnesium 1.5 L (1.6-2.3) mg/dL Urine Appearance Cloudy H (Clear) Urine Protein 1+ H (Negative) Urine Glucose (UA) 4+ H (Negative) Urine Ketones 3+ H (Negative) Ur Leukocyte Esterase Large H (Negative) Urine WBC 62 H (0-5) /hpf Urine Bacteria Rare H (None) /hpf Urine Mucus Rare H (None) /hpf Urine Yeast (Budding) Occasional H (None) /hpf 09/22/19 09/23/19 09/23/19 Range/Units 21:56 06:16 06:16 Lymphocytes # 0.5 L (1.0-4.8) k/uL Sodium 131 L (137-145) mmol/L Chloride 97 L (98-107) mmol/L BUN 25 H (7-17) mg/dL Creatinine (0.52-1.04) mg/dL Glucose 274 H (74-99) mg/dL POC Glucose (mg/dL) 265 H (75-99) mg/dL Magnesium (1.6-2.3) mg/dL Urine Appearance (Clear) Urine Protein (Negative) Urine Glucose (UA) (Negative) Urine Ketones (Negative) Ur Leukocyte Esterase (Negative) Urine WBC (0-5) /hpf Urine Bacteria (None) /hpf Urine Mucus (None) /hpf Urine Yeast (Budding) (None) /hpf 09/23/19 09/23/19 Range/Units 06:50 12:04 Lymphocytes # (1.0-4.8) k/uL Sodium (137-145) mmol/L Chloride (98-107) mmol/L BUN (7-17) mg/dL Creatinine (0.52-1.04) mg/dL Glucose (74-99) mg/dL POC Glucose (mg/dL) 277 H 253 H (75-99) mg/dL Magnesium (1.6-2.3) mg/dL Urine Appearance (Clear) Urine Protein (Negative) Urine Glucose (UA) (Negative) Urine Ketones (Negative) Ur Leukocyte Esterase (Negative) Urine WBC (0-5) /hpf Urine Bacteria (None) /hpf Urine Mucus (None) /hpf Urine Yeast (Budding) (None) /hpf Microbiology - Last 24 Hours (Table) 09/22/19 20:30 Urine Culture - Preliminary Urine,Voided Assessment and Plan Assessment: UTI with metabolic encephalopathy in setting of baseline dementia -Continue with ceftriaxone -Follow up blood and urine cultures -Continue with IV fluids Type II DM -Continue with insulin Levemir 20 units daily at bedtime with sliding scale and blood glucose monitoring -Check A1c Hyponatremia -Continue with IV fluids and monitor BMP Hypomagnesemia -Replace and monitor Hypertension, HLD, hx of TIA -Continue with home meds DVT prophylaxis -Heparin subq [Patient's mentation waxing and waning with history of dementia. Nursing confirmed history of hospital delirium with her daughters. Continue IV antibiotics pending urine cultures. Likely DC in 1-2 days.]
[2019-09-23 15:01] LABS: Hemoglobin A1C 7.5 % (4.0-6.0)
[2019-09-23 17:13] LABS: Glucose,Whole Blood 224 mg/dL (75-99)
[2019-09-23] MEDS: ATORVASTATIN 40 MG TAB PO SCH (17:30)
[2019-09-23 20:47] LABS: Glucose,Whole Blood 215 mg/dL (75-99)
[2019-09-23] MEDS: INSULIN DETEMIR (LEVEMIR) 100 UNIT/ML SYR SQ SCH (20:59)
[2019-09-23 22:36] LABS: Glucose,Whole Blood 220 mg/dL (75-99)
--- NOTE | 2019-09-24 00:37 | P.EN ---
i was notified by RN to evaluate patient who suspected to have passed out while assisted by her RN, in the presence of family member in the room, to go to the bathroom. patient being treated for UTI , and underlying dementia patient vital sings stable at this time. her exam is benign , she is back to her baseline. no focal neuro deficits. follows commands making good eye contact. denies any chest pain, trouble breathing, headaches, dizziness, or lightheadedess,. her property assessment monitor picked up on tachycardia in the 130s, was very brief, with possible suspected Afib , james has no history of afib blood sugar was unremarkable blood work reviewed she is on 130 cc/hr NS 0.9% suspected vasovagal attack continue close monitoring no changes at this time in her curent medications consider cardio consult in AM
[2019-09-24] MEDS: SODIUM CHLORIDE 0.9% 1,000 ML IV SCH ×3 (01:45→18:38)
[2019-09-24 06:13] LABS: Glucose,Whole Blood 85 mg/dL (75-99)
[2019-09-24] MEDS: INSULIN ASPART (NovoLOG) 100 UNIT/ML VIAL SQ SCH ×4 (06:41→21:07)
[2019-09-24] MEDS: HEPARIN SODIUM,PORCINE 5,000 UNIT/ML 1 ML VIAL SQ SCH ×2 (08:49→17:27)
[2019-09-24] MEDS: CALCIUM CARBONATE 500 MG CHEWABLE PO SCH (08:52)
[2019-09-24] MEDS: FAMOTIDINE 20 MG TAB PO SCH (08:53)
[2019-09-24 09:25] LABS: Basophils % (A) 0 %; Eosinophils % (A) 0 %; HCT 36.8 % (34.0-46.0); HGB 11.9 gm/dL (11.4-16.0); Lymphocytes # (A) 1.1 k/uL (1.0-4.8); Lymphocytes % (A) 12 %; MCH 29.9 pg (25.0-35.0); MCHC 32.4 g/dL (31.0-37.0); MCV 92.4 fL (80.0-100.0); Mean Platelet Volume 7.6; Monocytes # (A) 0.7 k/uL (0-1.0); Monocytes % (A) 8 %; Neutrophils # (A) 6.8 k/uL (1.3-7.7); Neutrophils % (A) 77 %; Platelet Count 257 k/uL (150-450); RBC 3.99 m/uL (3.80-5.40); RDW 12.8 % (11.5-15.5); WBC 8.8 k/uL (3.8-10.6)
[2019-09-24 09:44] LABS: African American GFR (CKD) >90 (>60 ml/min/1.73 sqM); Anion Gap 10 mmol/L; Blood Urea Nitrogen 32 mg/dL (7-17); Calcium 9.4 mg/dL (8.4-10.2); Carbon Dioxide 25 mmol/L (22-30); Chloride 97 mmol/L (98-107); Glucose 132 mg/dL (74-99); Non-African American GFR(CKD) 85 (>60 ml/min/1.73 sqM); Potassium 3.6 mmol/L (3.5-5.1); Sodium 132 mmol/L (137-145)
[2019-09-24] MEDS: DULoxetine HCL 30 MG CAPSULE.DR PO SCH (11:41)
[2019-09-24] MEDS: amLODIPine 5 MG TAB PO SCH (11:41)
[2019-09-24] MEDS: LOSARTAN-HCTZ 50-12.5 MG 1 EACH TAB PO SCH (11:41)
[2019-09-24] MEDS: LOSARTAN 50 MG TAB PO SCH (11:41)
[2019-09-24] MEDS: CHOLECALCIFEROL 1,000 UNIT TAB PO SCH (11:43)
[2019-09-24] MEDS: ASPIRIN 81 MG PO SCH (11:43)
[2019-09-24 11:46] LABS: Glucose,Whole Blood 158 mg/dL (75-99)
[2019-09-24] MEDS: FLUTICASONE 50MCG/SPRAY NASAL 16GM EA NOSTRIL SCH (11:50)
--- NOTE | 2019-09-24 15:17 | P.PN ---
Subjective Progress Note Date: 09/24/19 Principal diagnosis: UTI Patient was seen and examined. No acute events overnight. Patient appears pleasantly confused this morning. Her daughter has been able to come in and p rovided moral support the patient along with deal with her hospital delirium. Apparently overnight, patient attempted to stand to use the washroom and had a presyncopal episode, heart rate into the 140s. Possible atrial fibrillation noted on telemetry. Patient herself does not have any complaints. She denies any abdominal pain or dysuria. No nausea or vomiting. No fever or chills. She denies any chest pain, shortness of breath or palpitations. Objective - Vital Signs Vital signs: Vital Signs Temp 98.4 F 09/24/19 12:00 Pulse 96 09/24/19 12:00 Resp 18 09/24/19 12:00 BP 190/76 09/24/19 12:00 Pulse Ox 96 09/24/19 12:00 Intake & Output 09/23/19 09/24/19 09/24/19 18:59 06:59 18:59 Intake Total 1010 180 Output Total 750 800 Balance 1010 -750 -620 Weight 61 kg Intake: Intake, IV Titration 1010 130 Amount Sodium Chloride 0.9% 1, 910 130 000 ml @ 75 mls/hr IV . [id number] KATIE Rx#:[id number] cefTRIAXone 1 gm In 100 Sodium Chloride 0.9% 50 ml @ 100 mls/hr IVPB Q24HR KATIE Rx#:[id number] Oral 50 Output: Urine 750 800 Straight 750 Other: Voiding Method Bedside Commode Self-Catheterization Bedside Commode # Voids 2 1 1 - Exam General: [non toxic], [no distress], [appears at stated age] Derm: [warm], [dry] Head: [atraumatic], [normocephalic], [symmetric] Eyes: [EOMI], [no lid lag], [anicteric sclera] Mouth: [no lip lesion], [mucus membranes moist] Cardiovascular: [S1S2 reg], [no murmur], [positive posterior tibial pulse bilateral], Lungs: [CTA bilateral], [no rhonchi, no rales] , [no accessory muscle use] Abdominal: [soft], [ nontender to palpation], [no guarding], [no appreciable organomegaly] Ext: [no gross muscle atrophy], [no edema], [no contractures] Neuro: [ CN II-XI grossly intact], [no focal neuro deficits] Psych: [Pleasantly confused but redirectable] - Labs CBC & Chem 7: 09/24/19 09:07 09/24/19 09:07 Labs: Abnormal Lab Results - Last 24 Hours (Table) 09/23/19 09/23/19 09/23/19 Range/Units 17:12 20:45 22:34 Sodium (137-145) mmol/L Chloride (98-107) mmol/L BUN (7-17) mg/dL Glucose (74-99) mg/dL POC Glucose (mg/dL) 224 H 215 H 220 H (75-99) mg/dL 09/24/19 09/24/19 Range/Units 09:07 11:45 Sodium 132 L (137-145) mmol/L Chloride 97 L (98-107) mmol/L BUN 32 H (7-17) mg/dL Glucose 132 H (74-99) mg/dL POC Glucose (mg/dL) 158 H (75-99) mg/dL Microbiology - Last 24 Hours (Table) 09/22/19 22:00 Blood Culture - Preliminary Blood No Growth after 24 hours 09/22/19 20:30 Urine Culture - Final Urine,Voided Strep agalactiae - (group b) Assessment and Plan Assessment: Presyncopal episode -Orthostasis versus vasovagal versus arrhythmia -Possible atrial fibrillation seen on telemetry -Obtain orthostats, telemetry monitoring, echocardiogram ordered, cardiology consulted UTI with metabolic encephalopathy in setting of baseline dementia -Continue with ceftriaxone -Urine culture shows strep agalactiae -Continue with IV fluids Type II DM -Continue with insulin Levemir 20 units daily at bedtime with sliding scale and blood glucose monitoring -A1c is 7.5 Hyponatremia -Continue with IV fluids and monitor BMP Hypomagnesemia -Replace and monitor Hypertension, HLD, hx of TIA -Continue with home meds DVT prophylaxis -Heparin subq [Patient's mentation at baseline per daughter. Continue IV antibiotics for UTI. Cardiology consulted after syncopal episode, workup underway. Patient is pending clinical improvement. Likely DC in 1-2 days.]
[2019-09-24 17:24] LABS: Glucose,Whole Blood 210 mg/dL (75-99)
[2019-09-24] MEDS: ATORVASTATIN 40 MG TAB PO SCH (17:26)
[2019-09-24 20:28] LABS: Glucose,Whole Blood 197 mg/dL (75-99)
[2019-09-24] MEDS: INSULIN DETEMIR (LEVEMIR) 100 UNIT/ML SYR SQ SCH (21:07)
[2019-09-24 22:36] LABS: Glucose,Whole Blood 269 mg/dL (75-99)
[2019-09-25] MEDS: HEPARIN SODIUM,PORCINE 5,000 UNIT/ML 1 ML VIAL SQ SCH ×3 (00:30→16:53)
[2019-09-25] MEDS: MELATONIN 3 MG TABLET PO SCH ×2 (02:58→21:48)
[2019-09-25 06:08] LABS: Glucose,Whole Blood 52 mg/dL (75-99)
[2019-09-25] MEDS: INSULIN ASPART (NovoLOG) 100 UNIT/ML VIAL SQ SCH ×4 (06:22→21:48)
[2019-09-25 06:26] LABS: Glucose,Whole Blood 73 mg/dL (75-99)
--- NOTE | 2019-09-25 08:53 | P.CRDCN ---
History of Present Illness History of present illness: Ruth Penaloza This is Dr. Hutchinson dictating a consult on this patient The patient was interviewed and examined by me IMPRESSION / ASSESSMENT: Atrial tachycardia with RVR Possible brief drop in blood pressure with associated syncope yesterday evening Underlying right bundle branch block pattern Hypertension Type 2 diabetes Dementia Hypomagnesemia Hyponatremia Patient initially presented with weakness. She did take a fall and hit her head on Wednesday PLAN: TSH level Switched to verapamil 120 mg by mouth daily instead of amlodipine Stop hydrochlorothiazide Continue losartan 50 g twice daily and watch sodium Replace magnesium Stop IV fluids today Maximize verapamil HPI Patient admitted with weakness and an episode of fall hospital syncope. She hit her head minute she was diagnosed with UTI On telemetry here she is having short runs of atrial tachycardia with RVR up to 130 beats a minute Last night she again took fall/brief syncope, that time heart rates 130 beats a minute Telemetry reviewed and shows bursts of atrial tachycardia with RVR up to 130 beats a minute Her labs show hyponatremia hypermagnesemia elevated BUN ROS: No fever chills or rigors, no cough, phlegm or expectoration, no nausea, vomiting or diarrhea, no hematuria, dysuria, no musculoskeletal complaints, no strokes or seizures, no skin lesions. EXAMINATION: Blood pressure normal 124/62 137/55 Heart rates in the 60s to 90s Yesterday her heart rate was between 102 - 133 beats a minute Mild bilateral crackles at the bases Soft systolic murmur rhythm is irregular No lower extremity edema No JVD Otherwise looks comfortable REVIEW OF LABS, ECG & MEDICAL DATA White count 8.3, hemoglobin 13.3 and then 11.9 Sodium 132 potassium 4.1 and 3.6 BUN 32 creatinine 0.58 Troponin normal Hemoglobin 7.5 Past Medical History Past Medical History: Cancer, CVA/TIA, Dementia, Diabetes Mellitus, Hearing Disorder / Deafness, Hyperlipidemia, Hypertension, Pneumonia, Skin Disorder Additional Past Medical History / Comment(s): HAS A INSULIN PUMP,YELLOW JAUNDICE A CHILD". TIA, NO RESIDUAL. History of Any Multi-Drug Resistant Organisms: None Reported Past Surgical History: Heart Catheterization With Stent, Orthopedic Surgery Additional Past Surgical History / Comment(s): SURGERY ON LEG-PLATE AND SCREW,PLATE AND SCREW REMOVED ,CARPAL TUNNEL BILATERAL, carpal tunnel hands bilateral Past Anesthesia/Blood Transfusion Reactions: No Reported Reaction Date of Last Stent Placement:: 04/2014 Past Psychological History: No Psychological Hx Reported Smoking Status: Never smoker Past Alcohol Use History: Occasional Past Drug Use History: None Reported - Past Family History Sister(s) Family Medical History: Cancer, Diabetes Mellitus Additional Family Medical History / Comment(s): multiple siblings have had cancer and diabetes mellitus Medications and Allergies Home Medications Medication Instructions Recorded Confirmed Type Cholecalciferol [Vitamin D3 (25 1,000 units PO DAILY@0800 04/10/09/22/19 History Mcg = 1000 Iu)] Atorvastatin [Lipitor] 40 mg PO HS@1700 02/11/16 09/22/19 History Fluticasone Nasal [place] [Flonase 2 spray EA NOSTRIL DAILY@0800 02/11/16 09/22/19 History Nasal [place]] Losartan/Hydrochlorothiazide 1 tab PO DAILY@1200 02/11/16 09/22/19 History [Hyzaar 100-12.5 Tablet] [place]-3 Fatty Acids/Fish Oil [Fish 1 cap PO HS@1700 02/11/16 09/22/19 History Oil 1,000 mg Softgel] amLODIPine [Norvasc] 2.5 mg PO DAILY@1200 02/11/16 09/22/19 History ALPRAZolam [Xanax] 0.25 mg PO BID@0800,1400 09/22/19 09/22/19 History Acetaminophen Tab [Tylenol Tab] 1,000 mg PO Q8H PRN 09/22/19 09/22/19 History Acetic Acid [Acetic Acid Otic 5 - 10 drops BOTH EARS 09/22/19 09/22/19 History Solution] TID@0800,1400,2000 Aspirin EC [Ecotrin Low Dose] 81 mg PO DAILY@0800 09/22/19 09/22/19 History Calcium Carbonate [Calcium] 1,200 mg PO DAILY 09/22/19 09/22/19 History Calcium Carbonate [Tums] 1,000 mg PO DAILY@0800 09/22/19 09/22/19 History DULoxetine HCL [Cymbalta] 30 mg PO DAILY@0800 09/22/19 09/22/19 History Famotidine 10 mg PO DAILY@0800 09/22/19 09/22/19 History Fluticasone Nasal [place] [Flonase 2 spr EA NOSTRIL HS PRN 09/22/19 09/22/19 History Nasal [place]] Guaifenesin/Dextromethorphan 10 ml PO Q4H PRN 09/22/19 09/22/19 History [Diabetic Tussin Dm Max-Str Liq] Insulin Aspart [NovoLOG Flexpen] See Protocol SQ TID@0800,1200,1700 09/22/19 09/22/19 History Insulin Glargine,Hum.rec.anlog 22 unit SQ DAILY@0800 09/22/19 09/22/19 History [Lantus Solostar] Magnesium Oxide [Oleary] 1,000 mg PO HS@1700 09/22/19 09/22/19 History Naproxen Sodium [Aleve] 440 mg PO BID@0800,2000 09/22/19 09/22/19 History Phenylephrine HCl [Sudafed PE] 20 mg PO Q4H PRN 09/22/19 09/22/19 History Allergies Allergy/AdvReac Type Severity Reaction Status Date / Time Penicillins Allergy Rash/Hives Verified 09/22/19 19:52 UNSPECIFIED METAL AdvReac PAIN Uncoded 09/22/19 19:52 Physical Exam Vitals: Vital Signs Temp Pulse Resp BP BP BP Pulse Ox 09/25/19 03:39 68 16 09/25/19 00:00 97.8 F 95 16 137/55 98 09/24/19 20:00 98.5 F 82 16 124/62 96 09/24/19 16:00 98.3 F 96 16 167/86 95 09/24/19 12:00 98.4 F 96 18 190/76 96 Intake and Output 09/24/19 09/25/19 09/25/19 22:59 06:59 14:59 Intake Total 795 0 Output Total 1900 400 Balance -1900 395 0 Intake: Intake, IV Titration 675 Amount Sodium Chloride 0.9% 1, 675 000 ml @ 75 mls/hr IV . [id number] [facility] Rx#:[id number] Oral 120 0 Output: Urine 1900 400 Other: Voiding Method Bedside Commode Bedside Commode Weight 61 kg Results 09/24/19 09:07 09/24/19 09:07 CBC 09/24/19 Range/Units 09:07 WBC 8.8 (3.8-10.6) k/uL RBC 3.99 (3.80-5.40) m/uL Hgb 11.9 (11.4-16.0) gm/dL Hct 36.8 (34.0-46.0) % Plt Count 257 (150-450) k/uL Comprehensive Metabolic Panel 09/24/19 Range/Units 09:07 Sodium 132 L (137-145) mmol/L Potassium 3.6 (3.5-5.1) mmol/L Chloride 97 L (98-107) mmol/L Carbon Dioxide 25 (22-30) mmol/L BUN 32 H (7-17) mg/dL Creatinine 0.58 (0.52-1.04) mg/dL Glucose 132 H (74-99) mg/dL Calcium 9.4 (8.4-10.2) mg/dL Current Medications Generic Name Dose Route Start Last Admin Trade Name Freq PRN Reason Stop Dose Admin Aspirin 81 mg 09/23/19 08:00 09/24/19 11:43 Aspirin PO 81 mg DAILY@0800 [facility] Administration Atorvastatin Calcium 40 mg 09/23/19 17:00 09/24/19 17:26 Lipitor PO 40 mg HS@1700 KATIE Administration Calcium Carbonate/Glycine 1,000 mg 09/23/19 08:00 09/24/19 08:52 Tums PO 1,000 mg DAILY@0800 [facility] Administration Cholecalciferol 1,000 unit 09/23/19 08:00 09/24/19 11:43 Vitamin D3 (25 Mcg = 1000 Iu) PO 1,000 unit DAILY@0800 [facility] Administration Duloxetine HCl 30 mg 09/23/19 08:00 09/24/19 11:41 Cymbalta PO 30 mg DAILY@0800 [facility] Administration Famotidine 10 mg 09/23/19 08:00 09/24/19 08:53 Pepcid PO 10 mg DAILY@0800 [facility] Administration Fluticasone Propionate 2 spray 09/23/19 03:09 Flonase Nasal [place] EA NOSTRIL HS PRN Allergy Symptoms Fluticasone Propionate 2 spray 09/23/19 08:00 09/24/19 11:50 Flonase Nasal [place] EA NOSTRIL Not Given DAILY@0800 [facility] Heparin Sodium (Porcine) 5,000 unit 09/23/19 08:00 09/25/19 00:30 Heparin SQ Not Given Q8HR KATIE Ceftriaxone Sodium 1 gm/ 50 mls @ 100 mls/hr 09/23/19 09:00 09/24/19 08:45 Sodium Chloride IVPB 100 mls/hr Q24HR [facility] Administration Insulin Aspart 0 unit 09/23/19 07:30 09/25/19 06:22 Novolog SQ Not Given ACHS KATIE Protocol Insulin Detemir 20 unit 09/23/19 21:00 09/24/19 21:07 Levemir SQ 20 unit HS KATIE Administration Losartan Potassium 50 mg 09/25/19 09:00 Cozaar PO BID KATIE Melatonin 3 mg 09/25/19 02:48 09/25/19 02:58 Melatonin PO 3 mg HS KATIE Administration Naloxone HCl 0.2 mg 09/22/19 21:36 Narcan IV Q2M PRN Opioid Reversal Verapamil HCl 120 mg 09/25/19 09:00 Isoptin Sr PO DAILY KATIE Intake and Output 09/24/19 09/25/19 09/25/19 22:59 06:59 14:59 Intake Total 795 0 Output Total 1900 400 Balance -1900 395 0 Intake: Intake, IV Titration 675 Amount Sodium Chloride 0.9% 1, 675 000 ml @ 75 mls/hr IV . [id number] [facility] Rx#:[id number] Oral 120 0 Output: Urine 1900 400 Other: Voiding Method Bedside Commode Bedside Commode Weight 61 kg 09/24/19 09:07 09/24/19 09:07
[2019-09-25] MEDS: FAMOTIDINE 20 MG TAB PO SCH (09:34)
[2019-09-25] MEDS: CHOLECALCIFEROL 1,000 UNIT TAB PO SCH (09:34)
[2019-09-25] MEDS: CALCIUM CARBONATE 500 MG CHEWABLE PO SCH (09:34)
[2019-09-25] MEDS: DULoxetine HCL 30 MG CAPSULE.DR PO SCH (09:34)
[2019-09-25] MEDS: ASPIRIN 81 MG PO SCH (09:35)
[2019-09-25] MEDS: LOSARTAN 50 MG TAB PO SCH ×2 (09:35→21:48)
[2019-09-25] MEDS: VERAPAMIL SR 120 MG TABLET.ER PO SCH (09:42)
[2019-09-25 11:08] LABS: T4, Free (Free Thyroxine) 2.44 ng/dL (0.78-2.19)
[2019-09-25 11:28] LABS: Glucose,Whole Blood 166 mg/dL (75-99)
--- NOTE | 2019-09-25 11:35 | P.PN ---
Subjective Progress Note Date: 09/25/19 Principal diagnosis: UTI Patient was seen and examined. No acute events overnight. Patient appears pleasantly confused this morning. Her daughter has been able to come in and p rovided moral support the patient along with deal with her hospital delirium. Daughter reports decreased oral intake possibly related to heartburn. Daughter has not noticed any difficulty swallowing or choking on her food. Patient reports no specific complaints today. Objective - Vital Signs Vital signs: Vital Signs Temp 98.4 F 09/25/19 08:00 Pulse 72 09/25/19 08:00 Resp 16 09/25/19 08:00 BP 155/66 09/25/19 08:00 Pulse Ox 100 09/25/19 08:00 Intake & Output 09/24/19 09/25/19 09/25/19 18:59 06:59 18:59 Intake Total 180 795 0 Output Total 1900 800 Balance -1720 -5 0 Weight 61 kg Intake: Intake, IV Titration 130 675 Amount Sodium Chloride 0.9% 1, 130 675 000 ml @ 75 mls/hr IV . [id number] [facility] Rx#:[id number] Oral 50 120 0 Output: Urine 1900 800 Other: Voiding Method Bedside Commode Bedside Commode Bedside Commode # Voids 1 - Exam General: [non toxic], [no distress], [appears at stated age] Derm: [warm], [dry] Head: [atraumatic], [normocephalic], [symmetric] Eyes: [EOMI], [no lid lag], [anicteric sclera] Mouth: [no lip lesion], [mucus membranes moist] Cardiovascular: [S1S2 reg], [no murmur], [positive posterior tibial pulse bilateral], Lungs: [CTA bilateral], [no rhonchi, no rales] , [no accessory muscle use] Abdominal: [soft], [ nontender to palpation], [no guarding], [no appreciable organomegaly] Ext: [no gross muscle atrophy], [no edema], [no contractures] Neuro: [ CN II-XI grossly intact], [no focal neuro deficits] Psych: [Pleasantly confused but redirectable] - Labs CBC & Chem 7: 09/24/19 09:07 09/24/19 09:07 Labs: Abnormal Lab Results - Last 24 Hours (Table) 09/24/19 09/24/19 09/24/19 Range/Units 09:07 11:45 17:22 POC Glucose (mg/dL) 158 H 210 H (75-99) mg/dL TSH 0.262 L (0.465-4.680) mIU/L Free T4 2.44 H (0.78-2.19) ng/dL 09/24/19 09/24/19 09/25/19 Range/Units 20:26 22:35 06:06 POC Glucose (mg/dL) 197 H 269 H 52 L (75-99) mg/dL TSH (0.465-4.680) mIU/L Free T4 (0.78-2.19) ng/dL 09/25/19 Range/Units 06:24 POC Glucose (mg/dL) 73 L (75-99) mg/dL TSH (0.465-4.680) mIU/L Free T4 (0.78-2.19) ng/dL Microbiology - Last 24 Hours (Table) 09/22/19 22:00 Blood Culture - Preliminary Blood No Growth after 48 hours Assessment and Plan Assessment: Hypoglycemia with history of diabetes mellitus -Likely from poor oral intake -Change Levemir from 20 units to 10 units at bedtime. -Consult dietitian for poor oral intake -Start D5 at 50 mL per hour Hyperthyroidism -Low TSH and high free T4 -Plans to obtain free T3 would benefit from radioactive iodine uptake scan Presyncopal episode likely Atrial tachycardia -Orthostats positive yesterday, started on D5 at maintenance fluids, plans to repeat today -Patient started on verapamil for better rate control, cardiology to decide on anticoagulation -Telemetry monitoring, echocardiogram pending UTI with metabolic encephalopathy in setting of baseline dementia -Continue with ceftriaxone -Urine culture shows strep agalactiae Hyponatremia -Continue with IV fluids and monitor BMP Hypomagnesemia -Replace and monitor Hypertension, HLD, hx of TIA -Continue with home meds DVT prophylaxis -Heparin subq [Patient's mentation at baseline per daughter. Continue IV antibiotics for UTI. Cardiology consulted after syncopal episode, atrial tachycardia seen on telemetry, started on verapamil. Patient is pending clinical improvement. Likely DC in 1-2 days.]
[2019-09-25 12:08] VITALS: BMI 22.4
[2019-09-25] MEDS: DEXTROSE 5%-0.9% NACL 1,000 ML IV SCH (12:29)
[2019-09-25] MEDS: FLUTICASONE 50MCG/SPRAY NASAL 16GM EA NOSTRIL SCH (14:23)
[2019-09-25 16:42] LABS: Glucose,Whole Blood 247 mg/dL (75-99)
[2019-09-25] MEDS: ATORVASTATIN 40 MG TAB PO SCH (16:53)
[2019-09-25 20:20] LABS: Glucose,Whole Blood 438 mg/dL (75-99)
[2019-09-25] MEDS: INSULIN DETEMIR (LEVEMIR) 100 UNIT/ML SYR SQ SCH (21:47)
[2019-09-26] MEDS: HEPARIN SODIUM,PORCINE 5,000 UNIT/ML 1 ML VIAL SQ SCH ×4 (00:24→22:41)
[2019-09-26 06:28] LABS: Glucose,Whole Blood 200 mg/dL (75-99)
[2019-09-26] MEDS: INSULIN ASPART (NovoLOG) 100 UNIT/ML VIAL SQ SCH ×4 (06:34→20:44)
[2019-09-26 08:47] LABS: ALT 11 U/L (4-34); AST 18 U/L (14-36); African American GFR (CKD) >90 (>60 ml/min/1.73 sqM); Albumin 2.7 g/dL (3.5-5.0); Alkaline Phosphatase 58 U/L (38-126); Anion Gap 6 mmol/L; Blood Urea Nitrogen 25 mg/dL (7-17); Calcium 8.6 mg/dL (8.4-10.2); Carbon Dioxide 30 mmol/L (22-30); Chloride 92 mmol/L (98-107); Glucose 155 mg/dL (74-99); Non-African American GFR(CKD) 86 (>60 ml/min/1.73 sqM); Potassium 3.2 mmol/L (3.5-5.1); Sodium 128 mmol/L (137-145); Total Bilirubin 0.7 mg/dL (0.2-1.3); Total Protein 5.2 g/dL (6.3-8.2)
[2019-09-26 09:22] LABS: Basophils % (A) 0 %; Eosinophils # (A) 0.1 k/uL (0-0.7); Eosinophils % (A) 2 %; HCT 30.1 % (34.0-46.0); HGB 10.3 gm/dL (11.4-16.0); Lymphocytes # (A) 1.1 k/uL (1.0-4.8); Lymphocytes % (A) 26 %; MCH 31.2 pg (25.0-35.0); MCHC 34.2 g/dL (31.0-37.0); MCV 91.4 fL (80.0-100.0); Mean Platelet Volume 8.1; Monocytes # (A) 0.4 k/uL (0-1.0); Monocytes % (A) 10 %; Neutrophils # (A) 2.4 k/uL (1.3-7.7); Neutrophils % (A) 60 %; Platelet Count 202 k/uL (150-450); RBC 3.29 m/uL (3.80-5.40); RDW 12.5 % (11.5-15.5)
[2019-09-26] MEDS: DEXTROSE 5%-0.9% NACL 1,000 ML IV SCH (09:24)
[2019-09-26] MEDS: CALCIUM CARBONATE 500 MG CHEWABLE PO SCH (09:32)
[2019-09-26] MEDS: FAMOTIDINE 20 MG TAB PO SCH (09:32)
[2019-09-26] MEDS: CHOLECALCIFEROL 1,000 UNIT TAB PO SCH (09:32)
[2019-09-26] MEDS: FLUTICASONE 50MCG/SPRAY NASAL 16GM EA NOSTRIL SCH (09:33)
[2019-09-26] MEDS: ASPIRIN 81 MG PO SCH (09:33)
[2019-09-26] MEDS: VERAPAMIL SR 120 MG TABLET.ER PO SCH (09:33)
[2019-09-26] MEDS: LOSARTAN 50 MG TAB PO SCH ×2 (09:33→20:44)
[2019-09-26] MEDS: DULoxetine HCL 30 MG CAPSULE.DR PO SCH (09:33)
[2019-09-26] MEDS ORDERED: POTASSIUM CHLORIDE ER 20 MEQ TAB.ER PO STA (09:42)
--- NOTE | 2019-09-26 10:43 | ECHOF ---
Referral Reason:pre-syncope, tachycardia MEASUREMENTS -------- HEIGHT: 165.1 cm WEIGHT: 60.8 kg BP: 130/69 IVSd: 1.0 cm (0.6 - 1.1) LVIDd: 3.4 cm (3.9 - 5.3) LVPWd: 1.0 cm (0.6 - 1.1) IVSs: 1.6 cm LVIDs: 2.1 cm LVPWs: 1.3 cm RVIDd: 3.5 cm (< 3.3) LAESV Index (A-L): 40.19 ml/m Ao Diam: 3.1 cm (2.0 - 3.7) AV Cusp: 1.7 cm (1.5 - 2.6) EPSS: 0.2 cm MV E Sigifredo: 1.18 m/s MV DecT: 308 ms MV A Sigifredo: 1.38 m/s MV E/A Ratio: 0.85 RAP: 5.00 mmHg RVSP: 30.27 mmHg MV EF SLOPE: 79.64 mm/s (70 - 150) MV EXCURSION: 15.23 mm (> 18.000) FINDINGS -------- Sinus rhythm. This was a technically difficult study with suboptimal apical views. The left ventricular size is normal. Left ventricular wall thickness is normal. Overall left vent ricular systolic function is normal with, an EF between 55 - 60 %. The diastolic filling pattern is normal for the age of the patient 19.73. The right ventricle is mildly enlarged. LA is moderately dilated 34-39 ml/m2 The right atrial size is normal. Lumason used Interatrial and interventricular septum intact. The aortic valve is trileaflet and appears structurally normal. There is no evidence of aortic regu rgitation. There is no evidence of aortic stenosis. Moderate mitral annular calcification present. Mild mitral regurgitation is present. Mild tricuspid regurgitation present. There is borderline pulmonary hypertension. The right ventr icular systolic pressure, as measured by Doppler, is 30.27mmHg. There is no pulmonic regurgitation present. The aortic root size is normal. IVC Not well visulized. There is no pericardial effusion. CONCLUSIONS -------- 1. Sinus rhythm. 2. This was a technically difficult study with suboptimal apical views. 3. The left ventricular size is normal. 4. Left ventricular wall thickness is normal. 5. Overall left ventricular systolic function is normal with, an EF between 55 - 60 %. 6. The diastolic filling pattern is normal for the age of the patient 19.73 7. The right ventricle is mildly enlarged. 8. LA is moderately dilated 34-39 ml/m2 9. The right atrial size is normal. 10. Lumason used 11. Interatrial and interventricular septum intact. 12. The aortic valve is trileaflet and appears structurally normal. 13. There is no evidence of aortic regurgitation. 14. There is no evidence of aortic stenosis. 15. Moderate mitral annular calcification present. 16. Mild mitral regurgitation is present. 17. Mild tricuspid regurgitation present. 18. There is borderline pulmonary hypertension. 19. The right ventricular systolic pressure, as measured by Doppler, is 30.27mmHg. 20. There is no pulmonic regurgitation present. 21. The aortic root size is normal. 22. IVC Not well visulized. 23. There is no pericardial effusion. LOGISTICS CLERK: Socorro Troy RDCS
[2019-09-26 11:44] LABS: Glucose,Whole Blood 214 mg/dL (75-99)
--- NOTE | 2019-09-26 11:50 | P.PN ---
Subjective Progress Note Date: 09/26/19 Principal diagnosis: Weakness Patient is still weak and wobbly according to her daughter when she gets up out of her bed. She has not been eating much the last few days. No shortness of breath, no pain, no fevers or chills. Her blood sugars have been going up. She is still on D5 and water drip. Objective - Vital Signs Vital signs: Vital Signs Temp 98.0 F 09/26/19 04:00 Pulse 68 09/26/19 04:00 Resp 16 09/26/19 04:00 BP 130/69 09/26/19 04:00 Pulse Ox 95 09/26/19 04:00 Intake & Output 09/25/19 09/26/19 09/26/19 18:59 06:59 18:59 Intake Total 120 Output Total 200 Balance 120 -200 Weight 61 kg 61.4 kg Intake: Oral 120 Output: Urine 200 Other: Voiding Method Toilet Bedside Commode # Voids 0 1 # Bowel Movements 1 - Exam Constitutional: No acute distress, conversant, pleasant Eyes:Anicteric sclerae, moist conjunctiva, no lid-lag, PERRLA, ENMT: Oropharynx clear, no erythema, exudates Neck: Supple, FROM, no masses, or JVD, No carotid bruits, No thyromegaly Lungs: Clear to auscultation, Clear to percussion, Normal respiratory effort, no accessory muscle use Cardiovascular: Heart regular in rate and rhythm, No murmurs, gallops, or rubs, No peripheral edema Abdominal: Soft, Nontender, no guarding, rebound or rigidity, Normoactive bowel sounds, No hepatomegaly, No splenomegaly, No palpable mass Skin: Normal temperature, tone, texture, turgor, no induration, No subcutaneous nodules, No rash, lesions, No ulcers Extremities: No digital cyanosis, No clubbing, Pedal pulses intact and symmetrical, Radial pulses intact and symmetrical, No calf tenderness Psychiatric: Alert and oriented to person, place and time, appropriate affect, intact judgement Neuro: Muscles Strength 5/5 in all 4 extremities, Sensation to light touch grossly present throughout, Cranial nerves II-XII grossly intact, no focal sensory deficits - Labs CBC & Chem 7: 09/26/19 07:44 09/26/19 07:44 Labs: Abnormal Lab Results - Last 24 Hours (Table) 09/25/19 09/25/19 09/26/19 Range/Units 16:36 20:19 06:27 RBC (3.80-5.40) m/uL Hgb (11.4-16.0) gm/dL Hct (34.0-46.0) % Sodium (137-145) mmol/L Potassium (3.5-5.1) mmol/L Chloride (98-107) mmol/L BUN (7-17) mg/dL Glucose (74-99) mg/dL POC Glucose (mg/dL) 247 H 438 H 200 H (75-99) mg/dL Total Protein (6.3-8.2) g/dL Albumin (3.5-5.0) g/dL 09/26/19 09/26/19 Range/Units 07:44 07:44 RBC 3.29 L (3.80-5.40) m/uL Hgb 10.3 L (11.4-16.0) gm/dL Hct 30.1 L (34.0-46.0) % Sodium 128 L (137-145) mmol/L Potassium 3.2 L (3.5-5.1) mmol/L Chloride 92 L (98-107) mmol/L BUN 25 H (7-17) mg/dL Glucose 155 H (74-99) mg/dL POC Glucose (mg/dL) (75-99) mg/dL Total Protein 5.2 L (6.3-8.2) g/dL Albumin 2.7 L (3.5-5.0) g/dL Microbiology - Last 24 Hours (Table) 09/22/19 22:00 Blood Culture - Preliminary Blood No Growth after 72 hours Assessment and Plan Plan: Hypoglycemia with history of diabetes mellitus -Likely from poor oral intake and being on insulin -Resolved. D/c d5 gtt. -Levemir changed from 20 units to 10 units at bedtime. -On nutritional supplements per dietitian for poor oral intake -Encouraged to eat Hyperthyroidism -Low TSH and high free T4 -Outpatient radioactive iodine uptake scan Presyncopal episode likely Atrial tachycardia -Orthostats tested positive -Resolved -Seen by cardio, echo done, ok -Patient started on verapamil for better rate control -Telemetry UTI with metabolic encephalopathy in setting of baseline dementia -Continue with ceftriaxone -Urine culture shows strep agalactiae Hyponatremia -Sec to dehydration and d5 treatment -D/C d5 -Monitor BMP Hypokalemia, hypomagnesemia -Replaced Hypertension, HLD, hx of TIA -Continue with home meds DVT prophylaxis -Heparin subq General weakness PT and OT
--- NOTE | 2019-09-26 14:22 | P.PN ---
Subjective Progress Note Date: 09/26/19 This is an 84-year-old female with documented history of hypertension, diabetes, dementia, who initially presented to the hospital with symptoms of weakness and fall. She had been seen in consultation by Dr. Hutchinson. Consultation was requested because of burst of atrial tachycardia with RVR. Her labs on admission here showed hyponatremia, hypomagnesemia. Dr. Hutchinson switched her to verapamil yesterday instead of amlodipine, he stopped the hydrochlorothiazide, we continued the losartan. Magnesium was replaced. Patient was seen and examined today, no further episodes of atrial tachycardia were noted. Echocardiogram with Doppler study revealed a normal left ventricular systolic function. Objective - Vital Signs Vital signs: Vital Signs Temp 98.0 F 09/26/19 11:20 Pulse 69 09/26/19 11:20 Resp 16 09/26/19 11:20 BP 120/67 09/26/19 11:20 Pulse Ox 95 09/26/19 11:20 Intake & Output 09/25/19 09/26/19 09/26/19 18:59 06:59 18:59 Intake Total 120 230 Output Total 200 400 Balance 120 -200 -170 Weight 61 kg 61.4 kg Intake: Intake, IV Titration 50 Amount cefTRIAXone 1 gm In 50 Sodium Chloride 0.9% 50 ml @ 100 mls/hr IVPB Q24HR [facility] Rx#:[id number] Oral 120 180 Output: Urine 200 400 Other: Voiding Method Toilet Bedside Commode Bedside Commode # Voids 0 1 1 # Bowel Movements 1 - Exam PHYSICAL EXAMINATION: GENERAL: 84-year-old female in no acute distress at the time of my examination HEENT: Head is atraumatic, normocephalic. Pupils equal, round. Sclera anicteric. Conjunctiva are clear. Mucous membranes of the mouth are moist. Neck is supple. There is no elevated jugular venous pressure. No carotid bruit is heard. HEART EXAMINATION: R S1 and S2 with soft systolic murmur is heard CHEST EXAMINATION: Lungs are clear to auscultation and precussion. No chest wall tenderness is noted on palpation or with deep breathing. ABDOMEN: Soft, nontender. Bowel sounds are heard. No organomegaly noted. EXTREMITIES: 2+ peripheral pulses with no evidence of peripheral edema and no calf tenderness noted. NEUROLOGIC patient is awake, alert and oriented 3 . . - Labs CBC & Chem 7: 09/26/19 07:44 09/26/19 07:44 Labs: Abnormal Lab Results - Last 24 Hours (Table) 09/25/19 09/25/19 09/26/19 Range/Units 16:36 20:19 06:27 RBC (3.80-5.40) m/uL Hgb (11.4-16.0) gm/dL Hct (34.0-46.0) % Sodium (137-145) mmol/L Potassium (3.5-5.1) mmol/L Chloride (98-107) mmol/L BUN (7-17) mg/dL Glucose (74-99) mg/dL POC Glucose (mg/dL) 247 H 438 H 200 H (75-99) mg/dL Total Protein (6.3-8.2) g/dL Albumin (3.5-5.0) g/dL 09/26/19 09/26/19 09/26/19 Range/Units 07:44 07:44 11:39 RBC 3.29 L (3.80-5.40) m/uL Hgb 10.3 L (11.4-16.0) gm/dL Hct 30.1 L (34.0-46.0) % Sodium 128 L (137-145) mmol/L Potassium 3.2 L (3.5-5.1) mmol/L Chloride 92 L (98-107) mmol/L BUN 25 H (7-17) mg/dL Glucose 155 H (74-99) mg/dL POC Glucose (mg/dL) 214 H (75-99) mg/dL Total Protein 5.2 L (6.3-8.2) g/dL Albumin 2.7 L (3.5-5.0) g/dL Microbiology - Last 24 Hours (Table) 09/22/19 22:00 Blood Culture - Preliminary Blood No Growth after 72 hours Assessment and Plan Plan: MPRESSION / ASSESSMENT: #1 Atrial tachycardia with RVR #2 Possible brief drop in blood pressure with associated syncope , orthostatics have been negative #3 Underlying right bundle branch block pattern #4 Hypertension #5 Type 2 diabetes #6 Dementia #7 Hypomagnesemia #8 Hyponatremia Plan Echocardiogram with Doppler study was performed which revealed a normal left ventricular systolic function. From cardiology's perspective, patient may be able to be discharged home once cleared by primary. We will make her a follow- up appointment in the office post discharge. DNP note has been reviewed, I agree with a documented findings and plan of care. Patient was seen and examined.
[2019-09-26] MEDS: ATORVASTATIN 40 MG TAB PO SCH (15:57)
[2019-09-26 16:15] LABS: Glucose,Whole Blood 313 mg/dL (75-99)
[2019-09-26 16:50] LABS: Glucose,Whole Blood 357 mg/dL (75-99)
[2019-09-26 20:20] LABS: Glucose,Whole Blood 250 mg/dL (75-99)
[2019-09-26] MEDS: INSULIN DETEMIR (LEVEMIR) 100 UNIT/ML SYR SQ SCH (20:44)
[2019-09-26] MEDS: MELATONIN 3 MG TABLET PO SCH (20:44)
[2019-09-26 22:14] VITALS: RESP 16
[2019-09-26] MEDS ORDERED: ACETAMINOPHEN TAB 500 MG TAB PO PRN (22:33)
[2019-09-27 06:05] LABS: Glucose,Whole Blood 76 mg/dL (75-99)
[2019-09-27 06:19] VITALS: PULSE 65
[2019-09-27] MEDS: INSULIN ASPART (NovoLOG) 100 UNIT/ML VIAL SQ SCH ×2 (06:19→13:07)
[2019-09-27 07:30] LABS: Basophils % (A) 0 %; Eosinophils # (A) 0.1 k/uL (0-0.7); Eosinophils % (A) 2 %; HCT 31.6 % (34.0-46.0); HGB 10.5 gm/dL (11.4-16.0); Lymphocytes # (A) 0.8 k/uL (1.0-4.8); Lymphocytes % (A) 17 %; MCH 30.6 pg (25.0-35.0); MCHC 33.4 g/dL (31.0-37.0); MCV 91.6 fL (80.0-100.0); Monocytes # (A) 0.5 k/uL (0-1.0); Monocytes % (A) 11 %; Neutrophils # (A) 3.1 k/uL (1.3-7.7); Neutrophils % (A) 68 %; Platelet Count 200 k/uL (150-450); RBC 3.45 m/uL (3.80-5.40); RDW 12.5 % (11.5-15.5); WBC 4.6 k/uL (3.8-10.6)
[2019-09-27 07:39] LABS: African American GFR (CKD) >90 (>60 ml/min/1.73 sqM); Anion Gap 3 mmol/L; Blood Urea Nitrogen 19 mg/dL (7-17); Calcium 9.1 mg/dL (8.4-10.2); Carbon Dioxide 32 mmol/L (22-30); Chloride 96 mmol/L (98-107); Glucose 78 mg/dL (74-99); Magnesium 1.5 mg/dL (1.6-2.3); Non-African American GFR(CKD) 88 (>60 ml/min/1.73 sqM); Phosphorus 3.1 mg/dL (2.5-4.5); Potassium 3.6 mmol/L (3.5-5.1); Sodium 131 mmol/L (137-145)
[2019-09-27] MEDS: HEPARIN SODIUM,PORCINE 5,000 UNIT/ML 1 ML VIAL SQ SCH (09:11)
[2019-09-27] MEDS: CALCIUM CARBONATE 500 MG CHEWABLE PO SCH (09:11)
[2019-09-27] MEDS: LOSARTAN 50 MG TAB PO SCH (09:12)
[2019-09-27] MEDS: DULoxetine HCL 30 MG CAPSULE.DR PO SCH (09:12)
[2019-09-27] MEDS: FAMOTIDINE 20 MG TAB PO SCH (09:12)
[2019-09-27] MEDS: VERAPAMIL SR 120 MG TABLET.ER PO SCH (09:12)
[2019-09-27] MEDS: ASPIRIN 81 MG PO SCH (09:12)
[2019-09-27] MEDS: CHOLECALCIFEROL 1,000 UNIT TAB PO SCH (09:12)
[2019-09-27] MEDS: FLUTICASONE 50MCG/SPRAY NASAL 16GM EA NOSTRIL SCH (09:13)
[2019-09-27 09:22] VITALS: BP 150/70; TEMP 98.4
[2019-09-27 11:56] LABS: Glucose,Whole Blood 147 mg/dL (75-99)
--- NOTE | 2019-09-27 13:16 | P.DS ---
Providers Date of admission: 09/22/19 21:35 Expected date of discharge: 09/27/19 Attending physician: Viola Gomez MD Consults: 09/24/19 11:08 Consult Physician Routine Consulting Provider: Remy Hutchinson Consult Reason/Comments: possible afib Do you want consulting provider notified?: Yes Primary care physician: [facility] Course: 84-year-old female with a PMH of type II DM, dementia, hypertension, hyperlipidemia, and TIA who was brought in via EMS due to weakness and lethargy. The patient is a resident of [facility] and was noted to be weak and had a fall a few days prior, where she supposedly hit her head. The patient also had a single episode of vomiting earlier on the day of presentation. No pain, shortness with, fever, chills, nausea, vomiting, abdominal pain, or diarrhea. The patient underwent an extensive evaluation in the emergency room with WBC count 8.3, and 113.3, platelets 234, sodium 129, BUN 22, creatinine 0.4, glucose 245, and UA grossly abnormal w ith significant pyuria. Chest x-ray was unremarkable and EKG as reviewed by me showed a 93 bpm sinus rhythm with first- degree AV block and right bundle carlos a block. CT head and cervical spine revealed no acute changes. Patient was started on IV antibiotics with a urinary tract infection with ceftriaxone 1 g IV daily. Due to low sodium and clinical dehydration she was treated with IV fluids. During the hospitalization her sugars were dipping into the 50s. Her insulin was discontinued and was started on D5 and water drip. Sugars did improve. Hypoglycemia was thought to be secondary to very low oral intake. Her appetite was significantly down. She was encouraged to eat multiple times throughout the hospitalization. During the hospital stay and while she was assisted to go to the bathroom by her nurse she passed out, her vital sings were stable at that time, except for a brief episode of tachycardia with heart rate in the 130s range. She was seen by cardiology the next day and was thought to have atrial tachycardia. No atrial fibrillation was diagnosed. Her Norvasc was discontinued and she was started on verapamil. She is currently doing well. She was started on Lantus 10 units subcu instead of 22 units she used to take. She was resumed on SSI. This will be continued upon discharge. Urine culture grew Streptococcus agalactia. She'll be discharg ed on Omnicef for that. Patient will be sent back to the assisted-living facility today. Patient Condition at Discharge: Fair Plan - Discharge Summary Discharge Rx Participant: No New Discharge Prescriptions: New Insulin Detemir (Levemir) [Levemir] 10 unit SQ HS 30 Days #10 ml Cefdinir [Omnicef] 300 mg PO Q12HR 4 Days #8 capsule Verapamil Sr [Isoptin Sr] 120 mg PO DAILY 30 Days #30 tablet.er Continue Cholecalciferol [Vitamin D3 (25 Mcg = 1000 Iu)] 1,000 units PO DAILY@0800 Losartan/Hydrochlorothiazide [Hyzaar 100-12.5 Tablet] 1 tab PO DAILY@1200 Atorvastatin [Lipitor] 40 mg PO HS@1700 Fluticasone Nasal Declo [Flonase Nasal Declo] 2 spray EA NOSTRIL DAILY@0800 [place]-3 Fatty Acids/Fish Oil [Fish Oil 1,000 mg Softgel] 1 cap PO HS@1700 Fluticasone Nasal Declo [Flonase Nasal Declo] 2 spr EA NOSTRIL HS PRN PRN Reason: Allergy Symptoms Guaifenesin/Dextromethorphan [Diabetic Tussin Dm Max-Str Liq] 10 ml PO Q4H PRN PRN Reason: cough/congestion Acetaminophen Tab [Tylenol] 1,000 mg PO Q8H PRN PRN Reason: Pain Insulin Aspart [NovoLOG Flexpen] See Protocol SQ TID@0800,1200,1700 Magnesium Oxide [Oleary] 1,000 mg PO HS@1700 Famotidine 10 mg PO DAILY@0800 DULoxetine HCL [Cymbalta] 30 mg PO DAILY@0800 Calcium Carbonate [Calcium] 1,200 mg PO DAILY Calcium Carbonate [Tums] 1,000 mg PO DAILY@0800 Aspirin EC [Ecotrin Low Dose] 81 mg PO DAILY@0800 ALPRAZolam [Xanax] 0.25 mg PO BID@0800,1400 Naproxen Sodium [Aleve] 440 mg PO BID@0800,2000 Acetic Acid [Acetic Acid Otic Solution] 5 - 10 drops BOTH EARS TID@0800,1400,2000 Phenylephrine HCl [Sudafed PE] 20 mg PO Q4H PRN PRN Reason: Congestion Discontinued amLODIPine [Norvasc] 2.5 mg PO DAILY@1200 Insulin Glargine,Hum.rec.anlog [Lantus Solostar] 22 unit SQ DAILY@0800 Discharge Medication List Cholecalciferol [Vitamin D3 (25 Mcg = 1000 Iu)] 1,000 units PO DAILY@0800 04/10/14 [History] Atorvastatin [Lipitor] 40 mg PO HS@1700 02/11/16 [History] Fluticasone Nasal Declo [Flonase Nasal Declo] 2 spray EA NOSTRIL DAILY@0800 02/11/16 [History] Losartan/Hydrochlorothiazide [Hyzaar 100-12.5 Tablet] 1 tab PO DAILY@1200 02/11/16 [History] [place]-3 Fatty Acids/Fish Oil [Fish Oil 1,000 mg Softgel] 1 cap PO HS@17002/11/16 [History] ALPRAZolam [Xanax] 0.25 mg PO BID@0800,1400 09/22/19 [History] Acetaminophen Tab [Tylenol] 1,000 mg PO Q8H PRN 09/22/19 [History] Acetic Acid [Acetic Acid Otic Solution] 5 - 10 drops BOTH EARS TID@0800,1400,199909/22/19 [History] Aspirin EC [Ecotrin Low Dose] 81 mg PO DAILY@0800 09/22/19 [History] Calcium Carbonate [Calcium] 1,200 mg PO DAILY 09/22/19 [History] Calcium Carbonate [Tums] 1,000 mg PO DAILY@0800 09/22/19 [History] DULoxetine HCL [Cymbalta] 30 mg PO DAILY@0800 09/22/19 [History] Famotidine 10 mg PO DAILY@0800 09/22/19 [History] Fluticasone Nasal Declo [Flonase Nasal Declo] 2 spr EA NOSTRIL HS PRN 09/22/19 [History] Guaifenesin/Dextromethorphan [Diabetic Tussin Dm Max-Str Liq] 10 ml PO Q4H PRN 09/22/19 [History] Insulin Aspart [NovoLOG Flexpen] See Protocol SQ TID@0800,1200,1700 09/22/19 [History] Magnesium Oxide [Oleary] 1,000 mg PO HS@1700 09/22/19 [History] Naproxen Sodium [Aleve] 440 mg PO BID@0800,199909/22/19 [History] Phenylephrine HCl [Sudafed PE] 20 mg PO Q4H PRN 09/22/19 [History] Cefdinir [Omnicef] 300 mg PO Q12HR 4 Days #8 capsule 09/27/19 [Rx] Insulin Detemir (Levemir) [Levemir] 10 unit SQ HS 30 Days #10 ml 09/27/19 [Rx] Verapamil Sr [Isoptin Sr] 120 mg PO DAILY 30 Days #30 tablet.er 09/27/19 [Rx] Follow up Appointment(s)/Referral(s): Quan Soto MD [Primary Care Provider] - 1-2 days
--- NOTE | 2019-09-27 15:37 | P.PN ---
Subjective Progress Note Date: 09/27/19 This is an 84-year-old female with documented history of hypertension, diabetes, dementia, who initially presented to the hospital with symptoms of weakness and fall. She had been seen in consultation by Dr. Hutchinson. Consultation was requested because of burst of atrial tachycardia with RVR. Her labs on admission here showed hyponatremia, hypomagnesemia. Dr. Hutchinson switched her to verapamil yesterday instead of amlodipine, he stopped the hydrochlorothiazide, we continued the losartan. Magnesium was replaced. Patient was seen and examined today, no further episodes of atrial tachycardia were noted. Echocardiogram with Doppler study revealed a normal left ventricular systolic function. 09/27/2019 Patient was seen and examined this morning, overall doing well. No further episodes of atrial tachycardia. Hemodynamically stable. Objective - Vital Signs Vital signs: Vital Signs Temp 98.4 F 09/27/19 08:00 Pulse 65 09/27/19 08:00 Resp 16 09/27/19 12:00 BP 150/70 09/27/19 08:00 Pulse Ox 97 09/27/19 08:00 Intake & Output 09/26/19 09/27/19 09/27/19 18:59 06:59 18:59 Intake Total 350 660 Output Total 400 Balance -50 660 Weight 61.3 kg 61.3 kg Intake: Intake, IV Titration 50 Amount cefTRIAXone 1 gm In 50 Sodium Chloride 0.9% 50 ml @ 100 mls/hr IVPB Q24HR [facility] Rx#:[id number] Oral 300 660 Output: Urine 400 Other: Voiding Method Bedside Commode Bedside Commode Bedside Commode # Voids 1 2 1 - Exam PHYSICAL EXAMINATION: GENERAL: 84-year-old female in no acute distress at the time of my examination HEENT: Head is atraumatic, normocephalic. Pupils equal, round. Sclera anicteric. Conjunctiva are clear. Mucous membranes of the mouth are moist. Neck is supple. There is no elevated jugular venous pressure. No carotid bruit is heard. HEART EXAMINATION: R S1 and S2 with soft systolic murmur is heard CHEST EXAMINATION: Lungs are clear to auscultation and precussion. No chest wall tenderness is noted on palpation or with deep breathing. ABDOMEN: Soft, nontender. Bowel sounds are heard. No organomegaly noted. EXTREMITIES: 2+ peripheral pulses with no evidence of peripheral edema and no calf tenderness noted. NEUROLOGIC patient is awake, alert and oriented 3 . . - Labs CBC & Chem 7: 09/27/19 06:49 09/27/19 06:49 Labs: Abnormal Lab Results - Last 24 Hours (Table) 09/26/19 09/26/19 09/26/19 Range/Units 16:04 16:39 20:19 RBC (3.80-5.40) m/uL Hgb (11.4-16.0) gm/dL Hct (34.0-46.0) % Lymphocytes # (1.0-4.8) k/uL Sodium (137-145) mmol/L Chloride (98-107) mmol/L Carbon Dioxide (22-30) mmol/L BUN (7-17) mg/dL Creatinine (0.52-1.04) mg/dL POC Glucose (mg/dL) 313 H 357 H 250 H (75-99) mg/dL Magnesium (1.6-2.3) mg/dL 09/27/19 09/27/19 09/27/19 Range/Units 06:49 06:49 11:54 RBC 3.45 L (3.80-5.40) m/uL Hgb 10.5 L (11.4-16.0) gm/dL Hct 31.6 L (34.0-46.0) % Lymphocytes # 0.8 L (1.0-4.8) k/uL Sodium 131 L (137-145) mmol/L Chloride 96 L (98-107) mmol/L Carbon Dioxide 32 H (22-30) mmol/L BUN 19 H (7-17) mg/dL Creatinine 0.51 L (0.52-1.04) mg/dL POC Glucose (mg/dL) 147 H (75-99) mg/dL Magnesium 1.5 L (1.6-2.3) mg/dL Microbiology - Last 24 Hours (Table) 09/22/19 22:00 Blood Culture - Preliminary Blood No Growth after 96 hours Assessment and Plan Plan: MPRESSION / ASSESSMENT: #1 Atrial tachycardia with RVR #2 Possible brief drop in blood pressure with associated syncope , orthostatics have been negative #3 Underlying right bundle branch block pattern #4 Hypertension #5 Type 2 diabetes #6 Dementia #7 Hypomagnesemia #8 Hyponatremia Plan Echocardiogram with Doppler study was performed which revealed a normal left ventricular systolic function. From cardiology's perspective, patient may be able to be discharged home once cleared by primary. We will make her a follow- up appointment in the office post discharge. DNP note has been reviewed, I agree with a documented findings and plan of care. Patient was seen and examined.
== END 2019-09-27 14:25 | disposition home or self-care (01) | DRG 689 ==
LOC: EC 18:52 → 3SCARD 21:35
PROVIDERS: ADMIT Internal Medicine; ATTEND Internal Medicine
DX: N39.0 Urinary tract infection, site not specified (principal); G93.41 Metabolic encephalopathy; E87.1 Hypo-osmolality and hyponatremia; F05 Delirium due to known physiological condition; I47.1 Supraventricular tachycardia; E05.90 Thyrotoxicosis, unspecified without thyrotoxic crisis or storm; R55 Syncope and collapse; E83.42 Hypomagnesemia; E78.5 Hyperlipidemia, unspecified; E86.0 Dehydration; E11.65 Type 2 diabetes mellitus with hyperglycemia; F03.90 Unspecified dementia, unspecified severity, without behavioral disturbance, psychotic disturbance, mood disturbance, and anxiety; E11.649 Type 2 diabetes mellitus with hypoglycemia without coma; H91.90 Unspecified hearing loss, unspecified ear; I44.0 Atrioventricular block, first degree; I10 Essential (primary) hypertension; Z11.59 Encounter for screening for other viral diseases; Z79.899 Other long term (current) drug therapy; Z79.82 Long term (current) use of aspirin; Z79.4 Long term (current) use of insulin; Z88.0 Allergy status to penicillin; Z83.3 Family history of diabetes mellitus; Z86.73 Personal history of transient ischemic attack (TIA), and cerebral infarction without residual deficits; Z87.01 Personal history of pneumonia (recurrent); Z95.5 Presence of coronary angioplasty implant and graft; Z98.890 Other specified postprocedural states; Z80.9 Family history of malignant neoplasm, unspecified
CPT/HCPCS: 36415; 70450; 71045; 72125; 80048; 80053; 81001; 83036; 83605; 83735; 84100; 84439; 84443; 84481; 84484; 85025; 85610; 85730; 87040; 87086; 87635; 93005; 93306; 96361; 96365; 96375; 99285

== ENCOUNTER 2019-10-07 02:29 | Emergency (ER) | payer MEDICARE ==
--- NOTE | 2019-10-07 02:34 | ED ---
Fall HPI - General Stated Complaint: Fall Time Seen by Provider: 10/07/19 02:31 - History of Present Illness Initial Comments: Ruth is a pleasantly demented 84-year-old female is brought to ER today via EMS for evaluation of facial injury after a fall at her assisted. Per staff the patient reported she needed take use the restroom when she got up she seemed to have lost her balance or tripped getting out of bed falling forward striking the left side of her face and the ground. Staff reports that when he assessed her she seemed to be talking gibberish and more confused than her baseline dementia and noted to have abrasions to the left side of her face decided transfer to Hospital for valuation. On arrival patient is awake alert oriented to self otherwise unaware of date, day, here, events prior to hospitalization. Per daughter this is her baseline. - Related Data Home Medications Medication Instructions Recorded Confirmed Cholecalciferol [Vitamin D3 (25 1,000 units PO DAILY@0800 12/01/1409/22/19 Mcg = 1000 Iu)] Atorvastatin [Lipitor] 40 mg PO HS@1700 02/11/16 09/22/19 Fluticasone Nasal Parachute [Flonase 2 spray EA NOSTRIL DAILY@0800 02/11/16 09/22/19 Nasal Parachute] Losartan/Hydrochlorothiazide 1 tab PO DAILY@1200 02/11/16 09/22/19 [Hyzaar 100-12.5 Tablet] [place]-3 Fatty Acids/Fish Oil [Fish 1 cap PO HS@1700 02/11/16 09/22/19 Oil 1,000 mg Softgel] ALPRAZolam [Xanax] 0.25 mg PO BID@0800,1400 09/22/19 09/22/19 Acetaminophen Tab [Tylenol] 1,000 mg PO Q8H PRN 09/22/19 09/22/19 Acetic Acid [Acetic Acid Otic 5 - 10 drops BOTH EARS 09/22/19 09/22/19 Solution] TID@0800,1400,1999 Aspirin EC [Ecotrin Low Dose] 81 mg PO DAILY@0800 09/22/19 09/22/19 Calcium Carbonate [Calcium] 1,200 mg PO DAILY 09/22/19 09/22/19 Calcium Carbonate [Tums] 1,000 mg PO DAILY@0800 09/22/19 09/22/19 DULoxetine HCL [Cymbalta] 30 mg PO DAILY@0800 09/22/19 09/22/19 Famotidine 10 mg PO DAILY@0800 09/22/19 09/22/19 Fluticasone Nasal Parachute [Flonase 2 spr EA NOSTRIL HS PRN 09/22/19 09/22/19 Nasal Parachute] Guaifenesin/Dextromethorphan 10 ml PO Q4H PRN 09/22/19 09/22/19 [Diabetic Tussin Dm Max-Str Liq] Insulin Aspart [NovoLOG Flexpen] See Protocol SQ TID@0800,1200,1700 09/22/19 09/22/19 Magnesium Oxide [Oleary] 1,000 mg PO HS@1700 09/22/19 09/22/19 Naproxen Sodium [Aleve] 440 mg PO BID@0800,2000 09/22/19 09/22/19 Phenylephrine HCl [Sudafed PE] 20 mg PO Q4H PRN 09/22/19 09/22/19 Previous Rx's Medication Instructions Recorded Cefdinir [Omnicef] 300 mg PO Q12HR 4 Days #8 capsule 09/27/19 Insulin Detemir (Levemir) [Levemir] 10 unit SQ HS 30 Days #10 ml 09/27/19 Verapamil Sr [Isoptin Sr] 120 mg PO DAILY 30 Days #30 09/27/19 tablet.er Allergies Allergy/AdvReac Type Severity Reaction Status Date / Time Penicillins Allergy Rash/Hives Verified 09/22/19 19:52 UNSPECIFIED METAL AdvReac PAIN Uncoded 09/22/19 19:52 Review of Systems ROS Statement: Those systems with pertinent positive or pertinent negative responses have been documented in the HPI. ROS Other: All systems not noted in ROS Statement are negative. Past Medical History Past Medical History: Cancer, CVA/TIA, Dementia, Diabetes Mellitus, Hearing Disorder / Deafness, Hyperlipidemia, Hypertension, Pneumonia, Skin Disorder Additional Past Medical History / Comment(s): HAS A INSULIN PUMP,YELLOW JAUNDICE A CHILD". TIA, NO RESIDUAL. History of Any Multi-Drug Resistant Organisms: None Reported Past Surgical History: Heart Catheterization With Stent, Orthopedic Surgery Additional Past Surgical History / Comment(s): SURGERY ON LEG-PLATE AND SCREW,PLATE AND SCREW REMOVED ,CARPAL TUNNEL BILATERAL, carpal tunnel hands bilateral Past Anesthesia/Blood Transfusion Reactions: No Reported Reaction Date of Last Stent Placement:: 04/2014 Past Psychological History: No Psychological Hx Reported Smoking Status: Never smoker Past Alcohol Use History: Occasional Past Drug Use History: None Reported - Past Family History Sister(s) Family Medical History: Cancer, Diabetes Mellitus Additional Family Medical History / Comment(s): multiple siblings have had cancer and diabetes mellitus General Exam - General Exam Comments Initial Comments: Physical Exam GENERAL: Patient is well-developed and well-nourished. Patient is nontoxic and well-hydrated and is in no distress. HENT: Abrasion to the left forehead and left cheek EYES: PERRL, EOMI PULMONARY: Unlabored respirations. CARDIOVASCULAR: RRR Warm and well perfused extremities ABDOMEN: Non-distended SKIN: No rashes or bruising : Normal external genitalia Normal rectal exam, large stool ball in rectum NEUROLOGIC: Alert and oriented to self MUSCULOSKELETAL: Moving all extremities with no apparent injury PSYCHIATRIC: No SI/HI Course Vital Signs 10/07/19 02:32 Temperature 98.0 F Pulse Rate 80 Respiratory 16 Rate Blood Pressure 172/77 O2 Sat by Pulse 97 Oximetry Medical Decision Making - Medical Decision Making The patient was seen and evaluated history is obtained from EMS and patient's daughter bedside Patient has apparently been dealing with constipation recently. She's been getting a multiple answering I did attempt to use the restroom. She had a fall and injured her face but had no loss of consciousness and has no complaints patient is not even aware that she has injured CT scans of the brain patient bones and cervical spine were unremarkable there is age-related senescent changes. Patient's cervical collar was removed. Patient attempted to have a bowel movement unable to. I then digitally dis impacted the patient with a evacuation of a large volume of firm stool from the rectum. This time patient's medically cleared for discharge home. Will be transported back to her assisted via ambulance due to her advanced dementia. Disposition Clinical Impression: Fall Disposition: HOME SELF-CARE Instructions (If sedation given, give patient instructions): Fall Prevention for Older Adults (ED) Is patient prescribed a controlled substance at d/c from ED?: No Referrals: Quan Soto MD [Primary Care Provider] - 1-2 days
[2019-10-07 02:41] VITALS: BP 172/77; PULSE 80; RESP 16; TEMP 98
--- NOTE | 2019-10-07 03:12 | CT ---
EXAMINATION TYPE: CT brain michaela wo con DATE OF EXAM: 10/07/2019 COMPARISON: 09/22/2019 HISTORY: Fall Headache. Neck pain. CT DLP: 303.1 mGycm Automated exposure control for dose reduction was used. There is cerebral cortical atrophy. There is moderate enlargement of the ventricles. There is hypoden sity in the periventricular white matter. There is no mass effect nor midline shift. There is no sign of intracranial hemorrhage. The calvarium is intact. Cervical vertebra have normal alignment. There is degenerative disc space narrowing from C4 to T1 quynh tebra. There is no compression fracture. There is mild hypertrophic facet arthropathy. Skull base is intact. Prevertebral soft tissues are within normal limits. IMPRESSION: Multilevel cervical spondylotic changes. No fracture. No change. Cerebral atrophy and hydrocephalus and chronic small vessel ischemia unchanged.
--- NOTE | 2019-10-07 03:14 | CT ---
EXAMINATION TYPE: CT facial bones wo con DATE OF EXAM: 10/07/2019 COMPARISON: None HISTORY: fall Pain CT DLP: 786.7 mGycm Automated exposure control for dose reduction was used. Multiple axial sections were obtained from the bottom of the mandible to the top of the frontal sinus es without contrast. The orbital margins appear intact. There is no evidence of a blowout fracture. Maxilla is intact. Jamison al bone appears intact. Zygomatic arches appear normal. The mandibular ring is intact. I see no bony destructive process. There is fairly normal aeration of the paranasal sinuses. The temporal bones amor w normal aeration. IMPRESSION: Negative CT scan of the facial bones. No fracture.
[2019-10-07] MEDS ORDERED: DIPH,PERTUS(ACELL)TETVAC-LF 0.5 ML VIAL IM ONE (03:33)
== END 2019-10-07 04:40 | disposition home or self-care (01) ==
LOC: EC 02:29
DX: S00.81XA Abrasion of other part of head, initial encounter (principal); E11.9 Type 2 diabetes mellitus without complications; E78.5 Hyperlipidemia, unspecified; I10 Essential (primary) hypertension; Z23 Encounter for immunization; Z85.9 Personal history of malignant neoplasm, unspecified; Z86.73 Personal history of transient ischemic attack (TIA), and cerebral infarction without residual deficits; Z95.5 Presence of coronary angioplasty implant and graft; Z79.82 Long term (current) use of aspirin; Z79.1 Long term (current) use of non-steroidal anti-inflammatories (NSAID); Z79.4 Long term (current) use of insulin; Z79.899 Other long term (current) drug therapy; Z88.0 Allergy status to penicillin; Z91.048 Other nonmedicinal substance allergy status; W06.XXXA Fall from bed, initial encounter; Y92.129 Unspecified place in nursing home as the place of occurrence of the external cause
CPT/HCPCS: 70450; 70486; 72125; 90471; 90715; 99284

== ENCOUNTER 2019-10-30 22:55 | Emergency (ER) | payer MEDICARE ==
[2019-10-30 23:04] VITALS: RESP 18
[2019-10-30] MEDS ORDERED: SODIUM CHLORIDE 0.9% 1,000 ML IV STA (23:24)
[2019-10-30] MEDS ORDERED: SODIUM CHLORIDE 0.9% 500 ML 500 ML IV STA (23:24)
[2019-10-31 00:02] LABS: Basophils % (A) 0 %; Eosinophils # (A) 0.1 k/uL (0-0.7); Eosinophils % (A) 2 %; HGB 11.5 gm/dL (11.4-16.0); Lymphocytes # (A) 0.9 k/uL (1.0-4.8); Lymphocytes % (A) 15 %; MCH 30.9 pg (25.0-35.0); MCHC 33.8 g/dL (31.0-37.0); MCV 91.4 fL (80.0-100.0); Monocytes # (A) 0.5 k/uL (0-1.0); Monocytes % (A) 8 %; Neutrophils # (A) 4.6 k/uL (1.3-7.7); Neutrophils % (A) 73 %; Platelet Count 170 k/uL (150-450); RBC 3.72 m/uL (3.80-5.40); RDW 13.2 % (11.5-15.5); WBC 6.2 k/uL (3.8-10.6)
--- NOTE | 2019-10-31 00:11 | ED ---
Weakness HPI - General Chief complaint: Fall Stated complaint: Fall Time Seen by Provider: 10/30/19 23:09 Source: EMS, RN notes reviewed, old records reviewed Mode of arrival: EMS Limitations: altered mental status - History of Present Illness Initial comments: This is an 84-year-old female DF for evaluation poor story presents with family members for altered mental status fall and some rib pain rib pain and abdominal pain. Patient patient is unable to provide history family states patient's daughter states patient is premature at her baseline, history is otherwise obtained from EMSpatient is from a care facility with history of dementia MD Complaint: generalized weakness -: unknown Severity: moderate Severity scale (1-10): 5 Quality: aching (Rib pain) Consistency: constant Improves with: none Worsens with: none Context: trauma/injury Associated Symptoms: denies other symptoms - Related Data Home Medications Medication Instructions Recorded Confirmed Cholecalciferol [Vitamin D3 (25 1,000 units PO DAILY@0800 12//09/22/19 Mcg = 1000 Iu)] Atorvastatin [Lipitor] 40 mg PO HS@1700 02/11/16 09/22/19 Fluticasone Nasal [place] [Flonase 2 spray EA NOSTRIL DAILY@0800 02/11/16 09/22/19 Nasal [place]] Losartan/Hydrochlorothiazide 1 tab PO DAILY@1200 02/11/16 09/22/19 [Hyzaar 100-12.5 Tablet] Hiram-3 Fatty Acids/Fish Oil [Fish 1 cap PO HS@1700 02/11/16 09/22/19 Oil 1,000 mg Softgel] ALPRAZolam [Xanax] 0.25 mg PO BID@0800,1400 09/22/19 09/22/19 Acetaminophen Tab [Tylenol] 1,000 mg PO Q8H PRN 09/22/19 09/22/19 Acetic Acid [Acetic Acid Otic 5 - 10 drops BOTH EARS 09/22/19 09/22/19 Solution] TID@0800,1400,2000 Aspirin EC [Ecotrin Low Dose] 81 mg PO DAILY@0800 09/22/19 09/22/19 Calcium Carbonate [Calcium] 1,200 mg PO DAILY 09/22/19 09/22/19 Calcium Carbonate [Tums] 1,000 mg PO DAILY@0800 09/22/19 09/22/19 DULoxetine HCL [Cymbalta] 30 mg PO DAILY@0800 09/22/19 09/22/19 Famotidine 10 mg PO DAILY@0800 09/22/19 09/22/19 Fluticasone Nasal [place] [Flonase 2 spr EA NOSTRIL HS PRN 09/22/19 09/22/19 Nasal [place]] Guaifenesin/Dextromethorphan 10 ml PO Q4H PRN 09/22/19 09/22/19 [Diabetic Tussin Dm Max-Str Liq] Insulin Aspart [NovoLOG Flexpen] See Protocol SQ TID@0800,1200,1700 09/22/19 09/22/19 Magnesium Oxide [Oleary] 1,000 mg PO HS@17009/22/19 09/22/19 Naproxen Sodium [Aleve] 440 mg PO BID@0800,2000 09/22/19 09/22/19 Phenylephrine HCl [Sudafed PE] 20 mg PO Q4H PRN 09/22/19 09/22/19 Previous Rx's Medication Instructions Recorded Cefdinir [Omnicef] 300 mg PO Q12HR 4 Days #8 capsule 09/27/19 Insulin Detemir (Levemir) [Levemir] 10 unit SQ HS 30 Days #10 ml 09/27/19 Verapamil Sr [Isoptin Sr] 120 mg PO DAILY 30 Days #30 09/27/19 tablet.er Allergies Allergy/AdvReac Type Severity Reaction Status Date / Time Penicillins Allergy Rash/Hives Verified 10/30/19 23:04 UNSPECIFIED METAL AdvReac PAIN Uncoded 10/30/19 23:04 Review of Systems ROS Statement: Those systems with pertinent positive or pertinent negative responses have been documented in the HPI. ROS Other: All systems not noted in ROS Statement are negative. Past Medical History Past Medical History: Cancer, CVA/TIA, Dementia, Diabetes Mellitus, Hearing Disorder / Deafness, Hyperlipidemia, Hypertension, Pneumonia, Skin Disorder Additional Past Medical History / Comment(s): HAS A INSULIN PUMP,YELLOW JAUNDICE A CHILD". TIA, NO RESIDUAL. History of Any Multi-Drug Resistant Organisms: None Reported Past Surgical History: Heart Catheterization With Stent, Orthopedic Surgery Additional Past Surgical History / Comment(s): SURGERY ON LEG-PLATE AND SCREW,PLATE AND SCREW REMOVED ,CARPAL TUNNEL BILATERAL, carpal tunnel hands bilateral Past Anesthesia/Blood Transfusion Reactions: No Reported Reaction Date of Last Stent Placement:: 04/2014 Past Psychological History: No Psychological Hx Reported Smoking Status: Never smoker Past Alcohol Use History: Occasional Past Drug Use History: None Reported - Past Family History Sister(s) Family Medical History: Cancer, Diabetes Mellitus Additional Family Medical History / Comment(s): multiple siblings have had cancer and diabetes mellitus General Exam Limitations: altered mental status General appearance: alert, in no apparent distress Head exam: Present: atraumatic, normocephalic, normal inspection Eye exam: Present: normal appearance, PERRL, EOMI. Absent: scleral icterus, conjunctival injection, periorbital swelling ENT exam: Present: normal exam, mucous membranes moist Neck exam: Present: normal inspection. Absent: tenderness, meningismus, lymphadenopathy Respiratory exam: Present: normal lung sounds bilaterally. Absent: respiratory distress, wheezes, rales, rhonchi, stridor Cardiovascular Exam: Present: regular rate, normal rhythm, normal heart sounds. Absent: systolic murmur, diastolic murmur, rubs, gallop, clicks GI/Abdominal exam: Present: soft, normal bowel sounds. Absent: distended, te nderness, guarding, rebound, rigid Extremities exam: Present: normal inspection, full ROM, normal capillary refill. Absent: tenderness, pedal edema, joint swelling, calf tenderness Back exam: Present: normal inspection Neurological exam: Present: alert, oriented X3, CN II-XII intact Psychiatric exam: Present: normal affect, normal mood Skin exam: Present: warm, dry, intact, normal color. Absent: rash Course Vital Signs 10/30/19 10/31/19 22:58 02:55 Temperature 97.8 F 98 F Pulse Rate 75 78 Respiratory 18 18 Rate Blood Pressure 129/100 130/84 O2 Sat by Pulse 96 96 Oximetry - Reevaluation(s) Reevaluation #1: Medical record is reviewed No significant acute findings Patient has no significant complaints currently EKG Findings - EKG Comments: EKG Findings:: EKG shows sinus rhythm with 71, NC 206 QRS 122 QTC 456 Medical Decision Making - Medical Decision Making 84 female DF for evaluation for altered mental status and a fall. Patient has no significant injury, can be discharged home - Lab Data Result diagrams: 10/30/19 23:46 06/29/20 23:46 Lab Results 10/30/19 10/30/19 10/30/19 Range/Units 23:46 23:46 23:46 WBC 6.2 (3.8-10.6) k/uL RBC 3.72 L (3.80-5.40) m/uL Hgb 11.5 (11.4-16.0) gm/dL Hct 34.0 (34.0-46.0) % MCV 91.4 (80.0-100.0) fL MCH 30.9 (25.0-35.0) pg MCHC 33.8 (31.0-37.0) g/dL RDW 13.2 (11.5-15.5) % Plt Count 170 (150-450) k/uL Neutrophils % 73 % Lymphocytes % 15 % Monocytes % 8 % Eosinophils % 2 % Basophils % 0 % Neutrophils # 4.6 (1.3-7.7) k/uL Lymphocytes # 0.9 L (1.0-4.8) k/uL Monocytes # 0.5 (0-1.0) k/uL Eosinophils # 0.1 (0-0.7) k/uL Basophils # 0.0 (0-0.2) k/uL PT 11.7 (9.0-12.0) sec INR 1.2 H (<1.2) APTT 23.6 (22.0-30.0) sec Sodium 129 L (137-145) mmol/L Potassium 3.9 (3.5-5.1) mmol/L Chloride 95 L (98-107) mmol/L Carbon Dioxide 27 (22-30) mmol/L Anion Gap 7 mmol/L BUN 20 H (7-17) mg/dL Creatinine 0.52 (0.52-1.04) mg/dL Est GFR (CKD-EPI)AfAm >90 (>60 ml/min/1.73 sqM) Est GFR (CKD-EPI)NonAf 88 (>60 ml/min/1.73 sqM) Glucose 289 H (74-99) mg/dL Plasma Lactic Acid Bharathi (0.7-2.0) mmol/L Calcium 9.6 (8.4-10.2) mg/dL Phosphorus 2.1 L (2.5-4.5) mg/dL Magnesium 1.4 L (1.6-2.3) mg/dL Total Bilirubin 0.7 (0.2-1.3) mg/dL AST 34 (14-36) U/L ALT 19 (4-34) U/L Alkaline Phosphatase 136 H (38-126) U/L Troponin I (0.000-0.034) ng/mL Total Protein 6.1 L (6.3-8.2) g/dL Albumin 3.4 L (3.5-5.0) g/dL 10/30/19 10/30/19 Range/Units 23:46 23:46 WBC (3.8-10.6) k/uL RBC (3.80-5.40) m/uL Hgb (11.4-16.0) gm/dL Hct (34.0-46.0) % MCV (80.0-100.0) fL MCH (25.0-35.0) pg MCHC (31.0-37.0) g/dL RDW (11.5-15.5) % Plt Count (150-450) k/uL Neutrophils % % Lymphocytes % % Monocytes % % Eosinophils % % Basophils % % Neutrophils # (1.3-7.7) k/uL Lymphocytes # (1.0-4.8) k/uL Monocytes # (0-1.0) k/uL Eosinophils # (0-0.7) k/uL Basophils # (0-0.2) k/uL PT (9.0-12.0) sec INR (<1.2) APTT (22.0-30.0) sec Sodium (137-145) mmol/L Potassium (3.5-5.1) mmol/L Chloride (98-107) mmol/L Carbon Dioxide (22-30) mmol/L Anion Gap mmol/L BUN (7-17) mg/dL Creatinine (0.52-1.04) mg/dL Est GFR (CKD-EPI)AfAm (>60 ml/min/1.73 sqM) Est GFR (CKD-EPI)NonAf (>60 ml/min/1.73 sqM) Glucose (74-99) mg/dL Plasma Lactic Acid Bharathi 1.9 (0.7-2.0) mmol/L Calcium (8.4-10.2) mg/dL Phosphorus (2.5-4.5) mg/dL Magnesium (1.6-2.3) mg/dL Total Bilirubin (0.2-1.3) mg/dL AST (14-36) U/L ALT (4-34) U/L Alkaline Phosphatase (38-126) U/L Troponin I <0.012 (0.000-0.034) ng/mL Total Protein (6.3-8.2) g/dL Albumin (3.5-5.0) g/dL - Radiology Data Radiology results: report reviewed (CT brain C-spine. Ribs and chest x-ray negative for significant acute disease), image reviewed Disposition Clinical Impression: Fall, Mental status change, Weakness Disposition: HOME SELF-CARE Condition: Fair Instructions (If sedation given, give patient instructions): Fall Prevention for Older Adults (ED) Is patient prescribed a controlled substance at d/c from ED?: No Referrals: Quan Soto MD [Primary Care Provider] - 1-2 days
[2019-10-31 00:15] LABS: ALT 19 U/L (4-34); AST 34 U/L (14-36); African American GFR (CKD) >90 (>60 ml/min/1.73 sqM); Albumin 3.4 g/dL (3.5-5.0); Alkaline Phosphatase 136 U/L (38-126); Anion Gap 7 mmol/L; Blood Urea Nitrogen 20 mg/dL (7-17); Calcium 9.6 mg/dL (8.4-10.2); Carbon Dioxide 27 mmol/L (22-30); Chloride 95 mmol/L (98-107); Glucose 289 mg/dL (74-99); Magnesium 1.4 mg/dL (1.6-2.3); Non-African American GFR(CKD) 88 (>60 ml/min/1.73 sqM); Phosphorus 2.1 mg/dL (2.5-4.5); Potassium 3.9 mmol/L (3.5-5.1); Sodium 129 mmol/L (137-145); Total Bilirubin 0.7 mg/dL (0.2-1.3); Total Protein 6.1 g/dL (6.3-8.2)
[2019-10-31 00:16] LABS: INR 1.2 (<1.2); Partial Thromboplastin Time 23.6 sec (22.0-30.0); Prothrombin Time 11.7 sec (9.0-12.0)
--- NOTE | 2019-10-31 00:33 | XR ---
EXAMINATION TYPE: XR pelvis AP view DATE OF EXAM: 10/31/2019 COMPARISON: 02/11/2016 HISTORY: Pain. Fall. TECHNIQUE: FINDINGS: The pelvic ring appears intact. Proximal femurs and hip joints appear intact. Sacroiliac matthieu ints are intact. There is vascular calcification. IMPRESSION: No acute abnormality of the pelvis. No change.
--- NOTE | 2019-10-31 00:36 | XR ---
EXAMINATION TYPE: XR ribs LT w pa chest xray DATE OF EXAM: 10/31/2019 COMPARISON: Chest x-ray 09/22/2019 HISTORY: Chest pain. Left side rib pain. TECHNIQUE: 5 views FINDINGS: There is no heart failure nor confluent pneumonic infiltrate. Costophrenic angles are clear . There are old healed fractures of the left fourth and fifth ribs. There is no pleural effusion or p neumothorax. Heart is enlarged. I see no acute rib fracture. IMPRESSION: Cardiomegaly. No active cardiopulmonary disease. No acute rib fracture. No adverse change .
[2019-10-31] MEDS ORDERED: MORPHINE SULFATE 4 MG/ML SYRINGE IVP STA (00:53)
[2019-10-31] MEDS ORDERED: SODIUM CHLORIDE 0.9% 500 ML 500 ML IV STA (00:54)
[2019-10-31] MEDS ORDERED: KETOROLAC 30 MG/ML 1 ML VIAL IVP STA (00:54)
--- NOTE | 2019-10-31 02:11 | CT ---
EXAMINATION TYPE: CT brain michaela high con DATE OF EXAM: 10/31/2019 COMPARISON: 10/07/2019 HISTORY: AMS/Fall CT DLP: 1268.10 mGycm Automated exposure control for dose reduction was used. Multiple axial sections were obtained from the skull base to T1 vertebra without contrast. Multiple a xial sections were obtained of the brain without contrast. FINDINGS: There is extensive hypodensity in the periventricular white matter. There is enlargement of the ventr icles. There is cerebral cortical atrophy. There is no mass effect nor midline shift. There is no sig n of intracranial hemorrhage. The calvarium is intact. The cervical vertebra have normal alignment. There is some degenerative disc space narrowing in the m id and lower cervical spine. There is no compression fracture. Facet joints are intact. The skull bas e is intact. There is normal aeration of the temporal bones. IMPRESSION: Cerebral atrophy and chronic small vessel ischemia. Hydrocephalus. No acute intracranial abnormality. No change. Spondylotic changes in the cervical spine. No fracture. No change.
[2019-10-31 02:57] VITALS: BP 130/84; PULSE 78; TEMP 98
== END 2019-10-31 03:10 | disposition home or self-care (01) ==
LOC: EC 22:55
DX: R53.1 Weakness (principal); R41.82 Altered mental status, unspecified; F03.90 Unspecified dementia, unspecified severity, without behavioral disturbance, psychotic disturbance, mood disturbance, and anxiety; E78.5 Hyperlipidemia, unspecified; I10 Essential (primary) hypertension; E11.9 Type 2 diabetes mellitus without complications; Z79.51 Long term (current) use of inhaled steroids; Z79.82 Long term (current) use of aspirin; Z79.4 Long term (current) use of insulin; Z79.1 Long term (current) use of non-steroidal anti-inflammatories (NSAID); Z79.899 Other long term (current) drug therapy; Z88.0 Allergy status to penicillin; Z91.09 Other allergy status, other than to drugs and biological substances; Z86.73 Personal history of transient ischemic attack (TIA), and cerebral infarction without residual deficits; Z95.5 Presence of coronary angioplasty implant and graft; W19.XXXA Unspecified fall, initial encounter
CPT/HCPCS: 93005; 80053; 83605; 83735; 84100; 84484; 85025; 85610; 85730; 71101; 72170; 72125; 70450; 99285; 96374; 96361 ×2; J1885